=== PATIENT | male | born 1960 | race Caucasian/White ===

== ENCOUNTER 2020-07-11 11:29 | Outpatient (CLI) | payer BC, SELFPAY ==
[2020-07-11 12:08] LABS: Anion Gap 7 mmol/L (8-16); Blood Urea Nitrogen 26 mg/dL (9-20); Carbon Dioxide 29 mmol/L (22-30); Chloride 102 mmol/L (98-107); Estimated Glomerular Filt Rate 48; Glucose 129 mg/dL (75-110); Potassium 3.8 mmol/L (3.4-5.0); Sodium 138 mmol/L (137-145)
== END 2020-07-11 11:30 | disposition home or self-care (01) ==
PROVIDERS: Anesthesiology; PCP Internal Medicine; Visit Provider Surgery
DX: R35.8 Other polyuria (principal)
CPT/HCPCS: 36415; 80048

== ENCOUNTER 2020-07-17 00:33 | Outpatient (CLI) | payer BC, SELFPAY ==
[2020-07-17 16:39] LABS: SARS-CoV-2 RNA PCR Negative
== END 2020-07-17 00:34 | disposition home or self-care (01) ==
LOC: ANHCOVIDDT 00:33
PROVIDERS: PCP Internal Medicine; Visit Provider Surgery
DX: Z01.812 Encounter for preprocedural laboratory examination (principal); Z20.828 Contact with and (suspected) exposure to other viral communicable diseases
CPT/HCPCS: 87635; C9803; U0003

== ENCOUNTER 2020-07-19 01:43 | Day surgery (SDC) | payer BC, SELFPAY ==
[2020-07-05 17:04] VITALS: BMI 32.5
--- NOTE | 2020-07-17 16:56 | PM.SD ---
Same Day Admit/Disch: HPI History of Present Illness Chief complaint: umbilical hernia Narrative: Ady Da Silva Jr. is a 59 year old male Who noticed a periumbilical bulge about 15 months ago. It had increased in size for the last 6 months and occasionally is difficult to reduce. He was seen in the office and found to have a reducible periumbilical hernia. Patient also is known to have a paralyzed right vocal cord. This is the been the case since he was a child. He is taken to surgery now for periumbilical ventral hernia repair with mesh. [facility] Past Medical History Medical History (Updated 07/18/20 @ 18:03 by Amandeep Neal CRNA) Arthritis Depression GERD (gastroesophageal reflux disease) HTN (hypertension) Paralysis of vocal cords Ventral hernia without obstruction or gangrene Surgical History Surgical History (Updated 07/18/20 @ 18:04 by Amandeep Neal CRNA) History of shoulder surgery Hx of arthroscopic knee surgery Hx of hand surgery Hx of tonsillectomy Family History Family History Father Hypertension CAD (coronary artery disease) Pacemaker Mother Diabetes mellitus Dementia Sibling Hypertension Social History Social History Smoking status: Never smoker Tobacco type: cigarettes Alcohol intake: current Drinks per week: 3 Substance use: never Living arrangements: with family Spiritual care concerns: No Same Day Admit/Disch: Med Pre-admit Medications Home Medications Medication Instructions Recorded Confirmed Type bupropion HCl 300 mg 24 hr tablet, 300 mg PO QAM 05/18/20 07/19/20 History extended release olmesartan 40 mg tablet 40 mg PO DAILY 05/18/20 07/19/20 History sildenafil 100 mg tablet 100 mg PO PRN PRN 05/18/20 07/19/20 History B Complex-Vitamin B12 1 tab-cap PO DAILY 07/05/20 07/19/20 History Cinnamon 2,000 mg PO DAILY 07/05/20 07/19/20 History ascorbic acid (vitamin C) [Vitamin 1,600 mg PO DAILY 07/05/20 07/19/20 History C] chlorthalidone 25 mg PO DAILY 07/05/20 07/19/20 History cholecalciferol (vitamin D3) 2,000 unit PO DAILY 07/05/20 07/19/20 History [Vitamin D3] coenzyme Q10 [CoQ-10] 200 mg PO DAILY 07/05/20 07/19/20 History garlic 1,000 mg PO DAILY 07/05/20 07/19/20 History magnesium 400 mg PO DAILY 07/05/20 07/19/20 History testosterone undecanoate 237 mg PO QAM AND QPM 07/05/20 07/19/20 History zinc 100 mg PO DAILY 07/05/20 07/19/20 History hydrocodone-acetaminophen 1 - 2 tablet PO Q6H PRN #12 tablet 07/19/20 Rx ketorolac 10 mg PO Q6H 4 Days #16 tablet 07/19/20 Rx Exam Const: General: comfortable, no acute distress, alert and awake HENMT: Head: normocephalic and atraumatic Mouth: Yes Normal oral and palatal mucosa present Eyes: Conjunctivae: conjunctivae normal Pupils: Equal, round and reactive pupils present EOM: EOMs intact bilaterally Neck: Neck: normal visual inspection, no lymphadenopathy and nontender Resp: Effort & Inspection: normal respiratory effort Auscultation: clear to auscultation bilaterally Cardio: Rate: regular rate Rhythm: regular rhythm Heart sounds: no gallops, no murmurs and no rubs GI: Inspection: non-distended and visible herniation ( periumbilical) GI Palp: Yes Soft to palpation, No Tenderness to palpation present (GI), No Guarding due to palpation present (GI), No Hepatomegaly present, No Splenomegaly present, Yes Hernia present ( partially reducible periumbilical ventral hernia) and No Rebound tenderness present Auscultation: normal bowel sounds Skin: Lesions: no lesions Rashes: no rashes Neuro: General: no focal motor deficits and CN's II-XI intact bilaterally Cranial nerves: Yes Equal, round and reactive pupils present, Yes Bilaterally intact EOM present, Yes facial symmetry and Yes Midline tongue present Speech: normal speech Motor exam (neuro): 5/5 motor strength present throughout and Motor abn
--- NOTE | 2020-07-18 18:02 | WPDANESEPP ---
Anes - Eval Pre Procedure Procedure: Operation Date: 07/19/20 08:30 Proposed Procedures p Repair Umbilical Hernia with Mesh - Sd Hickye MD Date/Time: 07/18/20 18:02 Pre Op Diagnosis: umbilical hernia Patient Data Age: 59 Gender: M Height: 5 ft 6.5 in Weight: 92.72 kg Allergies Allergy/AdvReac Type Severity Reaction Status Date / Time No Known Allergies Allergy Verified 07/05/20 16:10 Home Medications Medication Instructions Recorded Confirmed Type bupropion HCl 300 mg 24 hr tablet, 300 mg PO QAM 05/18/20 07/05/20 History extended release olmesartan 40 mg tablet 40 mg PO DAILY 05/18/20 07/05/20 History sildenafil 100 mg tablet 100 mg PO PRN PRN 05/18/20 05/26/20 History B Complex-Vitamin B12 1 PO DAILY 07/05/20 History Cinnamon 2,000 mg PO DAILY 07/05/20 07/05/20 History ascorbic acid (vitamin C) [Vitamin 1,600 mg PO DAILY 07/05/20 07/05/20 History C] chlorthalidone 25 mg PO DAILY 07/05/20 07/05/20 History cholecalciferol (vitamin D3) 2,000 unit PO DAILY 07/05/20 07/05/20 History [Vitamin D3] coenzyme Q10 [CoQ-10] 200 mg PO DAILY 07/05/20 07/05/20 History garlic 1,000 mg PO DAILY 07/05/20 07/05/20 History magnesium 400 mg PO 07/05/20 History testosterone undecanoate 237 mg PO QAM AND QPM 07/05/20 07/05/20 History zinc 100 mg PO DAILY 07/05/20 07/05/20 History Patient hx anesthesia problems: none Family hx anesthesia problems: none PMFSH Past Medical History Medical History (Updated 07/18/20 @ 18:03 by Amandeep Neal CRNA) Arthritis Depression GERD (gastroesophageal reflux disease) HTN (hypertension) Paralysis of vocal cords Ventral hernia without obstruction or gangrene Surgical History Surgical History (Updated 07/18/20 @ 18:04 by Amandeep Neal CRNA) History of shoulder surgery Hx of arthroscopic knee surgery Hx of hand surgery Hx of tonsillectomy Family History Family History Father Hypertension CAD (coronary artery disease) Pacemaker Mother Diabetes mellitus Dementia Sibling Hypertension Social History Social History Smoking status: Never smoker Tobacco type: cigarettes Alcohol intake: current Drinks per week: 3 Substance use: never Spiritual care concerns: No Exam Day of Procedure 07/18/20 18:02
[2020-07-19 06:36] VITALS: BP 138/97; PULSE 89; RESP 20; TEMP 36.4; O2SAT 99
--- NOTE | 2020-07-19 06:49 | WPDHPUPDATE1 ---
History and Physical Update Update Date/Time: 07/19/20 06:49 History and Physical has been reviewed, including an updated exam of the patient. There are NO changes in the patient's condition. Risks, benefits, and alternatives have been discussed and questions answered. Patient agrees to proceed with procedure.
[2020-07-19] MEDS: ACETAMINOPHEN 500 MG TABLET 1000 MG PO (07:23)
[2020-07-19] MEDS: LACTATED RINGERS 1,000 ML 30 ML IV CONT (07:29)
[2020-07-19] MEDS: KETOROLAC 15 MG/ML VIAL (*BKC) IV PUSH (07:35)
--- NOTE | 2020-07-19 07:54 | WPDANESEFPP ---
Anes - Eval Final PreProcedure Day of Procedure 07/19/20 07:54 Patient weight: obese Heart: regular rate and rhythm Lungs: clear to auscultation and normal air movement Airway: Mallampati scale class II Neurological: alert and oriented Last oral intake: >/= 8 hours ASA classification: III Emergent: no Anesthetic plan: proceed Anesthesia type and monitoring: general GIVS and standard monitoring Informed Consent: The patient's anesthetic plan and its attendant risks and benefits were discussed with the patient/family/POA. Questions were solicited and answers provided to the satisfaction of the patient/family/POA.
[2020-07-19] MEDS: ceFAZolin 2 GM/D5W 50 ML 2 GM/50 ML BAG IVPB (08:55)
[2020-07-19 09:56] VITALS: BP 114/73; PULSE 80; RESP 14; O2SAT 95
--- NOTE | 2020-07-19 10:04 | PM.PROC ---
Procedure Note - Detailed Date of procedure: 07/19/20 Pre-op diagnosis: umbilical hernia Umbilical hernia Post-op diagnosis: same Procedure performed: Umbilical hernia repair with 4.6 cm Parietex underlay mesh Description of procedure: Patient was taken to the operating room and IV sedation was administered. Prep and drape was carried out. The proposed incision along the upper margin of the umbilicus was marked on the skin. Local anesthetic was infiltrated into the skin and the deeper subcutaneous tissues. Incision was made and dissection was carried down through the skin and to the hernia sac. The sac was then dissected free from the umbilical skin and the surrounding subcutaneous tissues. It was dissected down to its neck. Additional local anesthetic was infiltrated into the neck and the fascia surrounding the neck of the hernia sac. The sac was then amputated at its neck. The subcutaneous was undermined around the hernia defect. Additional local was infiltrated around the fascia. I placed a finger inside the hernia defect and checked for any abdominal wall adhesions in the area. None were found. No other hernias were noted. A 4.6 cm Parietex [place] was chosen. It was folded and placed in the defect. Once it symmetrically covered the defect, I placed cranial and caudal transfascial sutures of 0 Ethibond. These sutures were placed in such a fashion that, when tied, they would advance the edges of the hernia defect towards 1 another. These sutures were tied and had the desired effect. I then closed the hernia defect with [id number] mattress sutures of 0 Ethibond. The repair looked quite satisfactory. I then infiltrated additional local all around the areas of the repair. The umbilical skin was tacked to the fascia with 3 0 Vicryl suture. The subcutaneous was closed with 3 0 Vicryl. Subcuticular interrupted 4 O Vicryl skin stitches were placed. The skin was then closed with running 4 0 Monocryl subcuticular suture. Wound was dressed with Exofin surgical adhesive. The patient was awakened and taken to recovery in good condition. Counts were correct x2. Implants: 4.6 cm Parietex hernia mesh Anesthesia: MAC and local (0.5% Marcaine with Exparel) Surgeon: Sd Hickey MD Manager Country: [place]oxane MILLER Estimated blood loss (mL): 5 Drains: No Packing: No Pathology: none sent Complications: None Condition: stable Disposition: same day Findings: 12 millimeter hernia defect
[2020-07-19 10:20] VITALS: BP 110/65; PULSE 76; O2SAT 97
== END 2020-07-19 10:44 | disposition home or self-care (01) ==
PROVIDERS: PCP Internal Medicine; Visit Provider Surgery
PROC: (CPT 49652; principal; 2020-07-19 08:30)
DX: K43.9 Ventral hernia without obstruction or gangrene (principal); J38.00 Paralysis of vocal cords and larynx, unspecified; I10 Essential (primary) hypertension; K21.9 Gastro-esophageal reflux disease without esophagitis; F32.9 Major depressive disorder, single episode, unspecified
CPT/HCPCS: 49652; A9270; C1781; C9290; J0690; J1885; J2250; J2704; J3010; J7120

== ENCOUNTER 2020-10-08 09:53 | Emergency (ER) | payer BC, SELFPAY ==
[2020-10-08 10:02] VITALS: BP 148/110; PULSE 103; RESP 20; TEMP 36.4; O2SAT 100
[2020-10-08] MEDS: HYDROcodone/acetaminophen (*CRX) 5-325 MG TABLET 1 TAB PO (10:48)
[2020-10-08] MEDS: KETOROLAC (*BKC) 60 MG/2 ML VIAL IM (10:48)
--- NOTE | 2020-10-08 12:40 | ED.GENADULT ---
HPI - General Adult General Chief complaint: Unspecified Stated complaint: hemorrhoid Time Seen by Provider: 10/08/20 10:08 Source: patient Mode of arrival: ambulatory Limitations: no limitations History of Present Illness HPI narrative: Patient is a 60-year-old male who presents to emergency department for evaluation of rectal discomfort history of hemorrhoids with worsening condition over the last week patient notes gross irritation of the anodermal denies rectal bleeding has been in touch with primary care for this who has been using Proctofoam as sitz bath's currently patient denies any fever chills nausea vomiting presents noting moderate discomfort of the rectum Related Data Home Medications Medication Instructions Recorded Confirmed bupropion HCl 300 mg 24 hr tablet, 300 mg PO QAM 05/18/20 08/21/20 extended release olmesartan 40 mg tablet 40 mg PO DAILY 05/18/20 08/21/20 sildenafil 100 mg tablet 100 mg PO PRN PRN 05/18/20 08/21/20 B Complex-Vitamin B12 1 tab-cap PO DAILY 07/05/20 08/21/20 Cinnamon 2,000 mg PO DAILY 07/05/20 08/21/20 ascorbic acid (vitamin C) [Vitamin 1,600 mg PO DAILY 07/05/20 08/21/20 C] chlorthalidone 25 mg PO DAILY 07/05/20 08/21/20 cholecalciferol (vitamin D3) 2,000 unit PO DAILY 07/05/20 08/21/20 [Vitamin D3] coenzyme Q10 [CoQ-10] 200 mg PO DAILY 07/05/20 08/21/20 garlic 1,000 mg PO DAILY 07/05/20 08/21/20 magnesium 400 mg PO DAILY 07/05/20 08/21/20 testosterone undecanoate 237 mg PO QAM AND QPM 07/05/20 08/21/20 zinc 100 mg PO DAILY 07/05/20 08/21/20 alprazolam 10/08/20 hydrocortisone-pramoxine applic 10/08/20 Allergies Allergy/AdvReac Type Severity Reaction Status Date / Time No Known Allergies Allergy Verified 10/08/20 10:04 Review of Systems Review of Systems: All systems reviewed & are unremarkable except as noted in HPI and below PMFSH Past Medical History Medical History Arthritis Depression GERD (gastroesophageal reflux disease) HTN (hypertension) Paralysis of vocal cords Ventral hernia without obstruction or gangrene Surgical History Surgical History History of shoulder surgery History of umbilical hernia repair 07/19/2020 with mesh Hx of arthroscopic knee surgery Hx of hand surgery Hx of tonsillectomy Family History Family History Father Hypertension CAD (coronary artery disease) Pacemaker Mother Diabetes mellitus Dementia Sibling Hypertension Social History Social History Smoking status: Never smoker Tobacco type: cigarettes Alcohol intake: current Drinks per week: 3 Substance use: never Spiritual care concerns: No Exam Narrative: Exam Narrative: GENERAL: Well-appearing, well-nourished, and in no acute distress. HEAD: Normocephalic, atraumatic. EYES: PERRLA and EOMI. ENT: Nares clear, no rhinorrhea or epistaxis. Mucous membranes moist. Oropharynx without tonsillar hypertrophy exudate or other lesions. Bilateral TMs pearly real nonbulging NECK: Supple. No adenopathy or masses. No carotid bruits or JVD CHEST: Clear to auscultation. No respiratory distress. No wheezes rales or rhonchi HEART: Regular rate and rhythm. No murmur heard. Normal peripheral pulses. ABDOMEN: Soft, nontender, nondistended RECTAL: Patient with edematous anal Derm involves all of the anal Derm some purplish areas some violaceous areas and pink tissue noted there is no bleeding there are no cellulitic changes EXTREMITIES: Normal range of motion. No edema. SKIN: Warm, dry, no rash. NEURO: No focal deficits. Alert and oriented x3. PSYCH: Normal mood and affect. Course Course Emergency Course: Discussed case with patient's primary care who is working on getting him to a rectal specialist already we will continue the therapies add
== END 2020-10-08 12:56 | disposition home or self-care (01) ==
PROVIDERS: Emergency Provider Emergency Medicine; PCP Internal Medicine
DX: K62.89 Other specified diseases of anus and rectum (principal); M19.90 Unspecified osteoarthritis, unspecified site; F32.9 Major depressive disorder, single episode, unspecified; K21.9 Gastro-esophageal reflux disease without esophagitis; I10 Essential (primary) hypertension
CPT/HCPCS: 96372; 99283; A9270; J1885

== ENCOUNTER 2021-08-21 10:47 | Emergency (ER) | payer BC, SELFPAY ==
--- NOTE | ~2021-08-21 | XR_ITS ---
EXAMINATION: XR chest 2V DATE: 08/21/2021 11:03 INDICATION: Shortness of breath. COVID positive. TECHNIQUE: PA and lateral views of the chest were obtained. COMPARISON: Chest radiograph dated 09/18/2004 FINDINGS: The lungs remain clear with no focal airspace opacities, pulmonary edema, pleural effusion or pneumot horax. The cardiomediastinal silhouette is normal. Mild thoracic spondylosis. IMPRESSION: 1. No acute cardiopulmonary disease. Reviewed, dictated and finalized at location A.
--- NOTE | 2021-08-21 10:52 | ED.URI ---
HPI - URI/Sore Throat General Chief Complaint: Upper Respiratory Infection Stated Complaint: SOB Time Seen by Provider: 08/21/21 10:52 Source: patient and RN notes reviewed History of Present Illness HPI Narrative: Patient is 60-year-old male who presents the urgent care with complaints of shortness of breath that started yesterday with activity. Patient states that today is his first day out of post Covid quarantine and was supposed to go back to work. Patient states that yesterday he attempted to get up, move around and back in the house and noticed he had increased shortness of breath. Patient states he did not have any symptoms of Covid however his tested positive and therefore he got tested. Patient states he started taking Mucinex as of yesterday. Denies of any fevers or upper respiratory complaints. Denies of any cough or wheezing. Denies of any chest pain. Patient is extremely anxious and noted that his was in the hospital with Covid pneumonia. Patient states that his main concern is that he is unable to go back to work due to his shortness of breath . No other complaints. No acute distress noted with the exception of anxiety. Patient aware of the plan of care. Some parts of this dictation were generated by voice recognition software and may contain typographical and/or grammatical inaccuracies. Related Data Home Medications Medication Instructions Recorded Confirmed bupropion HCl 300 mg 24 hr tablet, 300 mg PO QAM 05/18/20 08/21/20 extended release olmesartan 40 mg tablet 40 mg PO DAILY 05/18/20 08/21/20 sildenafil 100 mg tablet 100 mg PO PRN PRN 05/18/20 08/21/20 B Complex-Vitamin B12 1 tab-cap PO DAILY 07/05/20 08/21/20 Cinnamon 2,000 mg PO DAILY 07/05/20 08/21/20 ascorbic acid (vitamin C) [Vitamin 1,600 mg PO DAILY 07/05/20 08/21/20 C] chlorthalidone 25 mg PO DAILY 07/05/20 08/21/20 cholecalciferol (vitamin D3) 2,000 unit PO DAILY 07/05/20 08/21/20 [Vitamin D3] coenzyme Q10 [CoQ-10] 200 mg PO DAILY 07/05/20 08/21/20 garlic 1,000 mg PO DAILY 07/05/20 08/21/20 magnesium 400 mg PO DAILY 07/05/20 08/21/20 testosterone undecanoate 237 mg PO QAM AND QPM 07/05/20 08/21/20 zinc 100 mg PO DAILY 07/05/20 08/21/20 alprazolam 10/08/20 hydrocortisone-pramoxine applic 10/08/20 Allergies Allergy/AdvReac Type Severity Reaction Status Date / Time No Known Allergies Allergy Verified 10/08/20 10:04 Review of Systems Review of Systems: CONSTITUTIONAL: Denies fever, chills, or sweats. EYES: Denies visual changes, redness, or discharge. ENT: Denies rhinorrhea, congestion, sore throat, or otalgia. CARDIOVASCULAR: Denies chest pain, palpitations, or edema. RESPIRATORY: Reports of dyspnea without cough or wheezing GASTROINTESTINAL: Denies abdominal pain, nausea, vomiting, or diarrhea. GENITOURINARY: Denies dysuria or hematuria. SKIN: Denies rash or itching. MUSCULOSKELETAL: Denies back pain, joint pain, or myalgia. NEUROLOGIC: Denies headache, numbness, or weakness. All other systems reviewed are negative, except as documented in HPI. [facility] Past Medical History Medical History Arthritis Depression GERD (gastroesophageal reflux disease) HTN (hypertension) Paralysis of vocal cords Ventral hernia without obstruction or gangrene Surgical History Surgical History History of shoulder surgery History of umbilical hernia repair 07/19/2020 with mesh Hx of arthroscopic knee surgery Hx of hand surgery Hx of tonsillectomy Family History Family History Father Hypertension CAD (coronary artery disease) Pacemaker Mother Diabetes mellitus Dementia Sibling Hypertension Social History Social History Smoking status: Never smoker Tobacco type: cigarettes Alcohol intake: cu
[2021-08-21 10:54] VITALS: BP 188/119; PULSE 109; RESP 16; TEMP 37.1; O2SAT 98
[2021-08-21 11:36] VITALS: BP 130/84
== END 2021-08-21 11:38 | disposition home or self-care (01) ==
PROVIDERS: Emergency Provider Nurse Practitioner Family; PCP Internal Medicine
DX: R06.02 Shortness of breath (principal); U09.9 Post COVID-19 condition, unspecified; M19.90 Unspecified osteoarthritis, unspecified site; K21.9 Gastro-esophageal reflux disease without esophagitis; I10 Essential (primary) hypertension; F32.A Depression, unspecified
CPT/HCPCS: 71046; 99213; G0463

== ENCOUNTER 2021-09-09 10:28 | Emergency (ER) | payer BC, SELFPAY ==
[2021-09-09 10:30] VITALS: BP 169/87; PULSE 87; RESP 16; TEMP 36.9; O2SAT 98
[2021-09-09 10:35] VITALS: BP 169/87; PULSE 87; RESP 16; TEMP 36.9; O2SAT 98
--- NOTE | 2021-09-09 10:43 | ED.EYEPROB ---
HPI - Eye Problem General Chief complaint: Eye Problems Stated complaint: eye irritation Time Seen by Provider: 09/09/21 10:43 Source: patient and RN notes reviewed Mode of arrival: ambulatory Limitations: no limitations History of Present Illness HPI Narrative: 61-year-old male presents with concern for left eye redness, irritation, drainage, discomfort. Reports the eye was matted shut in the morning for the last 2 mornings. He denies vision changes. Denies injury to the eye, foreign body. Does not wear contact lenses. Denies any sinus congestion or drainage. MD chief complaint: eye redness Related Data Home Medications Medication Instructions Recorded Confirmed bupropion HCl 300 mg 24 hr tablet, 300 mg PO QAM 05/18/20 09/09/21 extended release olmesartan 40 mg tablet 40 mg PO DAILY 05/18/20 09/09/21 sildenafil 100 mg tablet 100 mg PO PRN PRN 05/18/20 09/09/21 B Complex-Vitamin B12 1 tab-cap PO DAILY 07/05/20 09/09/21 Cinnamon 2,000 mg PO DAILY 07/05/20 09/09/21 ascorbic acid (vitamin C) [Vitamin 1,600 mg PO DAILY 07/05/20 09/09/21 C] chlorthalidone 25 mg PO DAILY 07/05/20 09/09/21 cholecalciferol (vitamin D3) 2,000 unit PO DAILY 07/05/20 09/09/21 [Vitamin D3] coenzyme Q10 [CoQ-10] 200 mg PO DAILY 07/05/20 09/09/21 magnesium 400 mg PO DAILY 07/05/20 09/09/21 zinc 100 mg PO DAILY 07/05/20 09/09/21 alprazolam 0.5 mg PO DAILY PRN 10/08/20 09/09/21 Allergies Allergy/AdvReac Type Severity Reaction Status Date / Time No Known Allergies Allergy Verified 09/09/21 10:31 Review of Systems Review of Systems: CONSTITUTIONAL: Denies malaise, chills, sweats, or fever. EYES: Denies visual changes. Reports left eye irritation, redness, discharge, matting. ENT: Denies rhinorrhea, congestion, sinus pain, otalgia or sore throat. SKIN: Denies rash or itching. NEUROLOGIC: Denies headache. All systems reviewed & are unremarkable except as noted in HPI and below PMFSH Past Medical History Medical History Arthritis Depression GERD (gastroesophageal reflux disease) HTN (hypertension) Paralysis of vocal cords Ventral hernia without obstruction or gangrene Surgical History Surgical History History of shoulder surgery History of umbilical hernia repair 07/19/2020 with mesh Hx of arthroscopic knee surgery Hx of hand surgery Hx of tonsillectomy Family History Family History Father Hypertension CAD (coronary artery disease) Pacemaker Mother Diabetes mellitus Dementia Sibling Hypertension Social History Social History Smoking status: Never smoker Tobacco type: cigarettes Alcohol intake: current Drinks per week: 3 Substance use: never Spiritual care concerns: No Comments At time of signature, agree with nursing past medical, surgical, social and family history. There is no relevant family history pertinent to the presenting complaint Exam Narrative: GENERAL: Well-appearing, well-nourished, and in no acute distress. HEAD: Normocephalic, atraumatic. EYES: PERRLA, right conjunctivae and sclera clear, and EOMI. No nystagmus. Left sclera and conjunctivae injected with copious drainage, no hordeolum or chalazion noted, no obvious injury to the eye noted ENT: Mucous membranes moist. NECK: Supple. CHEST: No respiratory distress. Speaks in full sentences. HEART: Regular rate and rhythm. SKIN: Warm, dry, no visible rash. NEURO: Alert and oriented x3. PSYCH: Normal mood and affect Course Course Emergency Course: Patient is aware of diagnosis, understands and agrees to treatment plan. Anticipatory guidance given. Patient agrees to follow-up as directed and is aware of reasons to seek care at the emergency department. Portions of this record may have been created with
== END 2021-09-09 10:58 | disposition home or self-care (01) ==
PROVIDERS: Emergency Provider Nurse Practitioner; PCP Internal Medicine
DX: H10.32 Unspecified acute conjunctivitis, left eye (principal); M19.90 Unspecified osteoarthritis, unspecified site; K21.9 Gastro-esophageal reflux disease without esophagitis; I10 Essential (primary) hypertension; F32.A Depression, unspecified
CPT/HCPCS: 99213; G0463

== ENCOUNTER 2022-10-10 16:42 | Emergency (ER) | payer BC, SELFPAY ==
[2022-10-10 16:48] VITALS: BP 160/82; PULSE 89; RESP 16; TEMP 36.6; O2SAT 97
--- NOTE | 2022-10-10 16:59 | ED.SKABFB ---
HPI - Skin/Abscess/Foreign Bdy General Chief complaint: Skin/Abscess/Foreign Body Stated complaint: pain from shingles Time Seen by Provider: 10/10/22 16:59 Source: patient Mode of arrival: ambulatory Limitations: no limitations History of Present Illness HPI narrative: 62-year-old male presents with shingles rash to right upper abdomen for 5 weeks. States on day 4 of rash he called his primary care physician regarding shingles was told to take yqhm-ayr-zyxlloe medications. He states that his pain is ?severe ?. His primary care physician is approximately 45 minutes away and he did not want to drive out there to see him due to his pain. He states that rash is well-healed and he does not understand why he is still uncomfortable. States that he cannot sleep at night. All systems reviewed and negative except as noted above. Related Data Home Medications Medication Instructions Recorded Confirmed bupropion HCl 300 mg 24 hr tablet, 300 mg PO QAM 05/18/20 10/10/22 extended release (Wellbutrin XL) olmesartan 40 mg tablet (Benicar) 40 mg PO DAILY 05/18/20 10/10/22 sildenafil 100 mg tablet (Viagra) 100 mg PO PRN PRN Erectile 05/18/20 10/10/22 Dysfunction B Complex-Vitamin B12 1 tab-cap PO DAILY 07/05/20 10/10/22 Cinnamon 2,000 mg PO DAILY 07/05/20 10/10/22 ascorbic acid (vitamin C) 1,000 mg 1,600 mg PO DAILY 07/05/20 10/10/22 tablet (Vitamin C) chlorthalidone 25 mg tablet 25 mg PO DAILY 07/05/20 10/10/22 cholecalciferol (vitamin D3) 50 2,000 unit PO DAILY 07/05/20 10/10/22 mcg (2,000 unit) capsule (Vitamin D3) coenzyme Q10 100 mg capsule 200 mg PO DAILY 07/05/20 10/10/22 (CoQ-10) magnesium 200 mg tablet 400 mg PO DAILY 07/05/20 10/10/22 zinc 50 mg tablet 100 mg PO DAILY 07/05/20 10/10/22 alprazolam 0.5 mg tablet 0.5 mg PO DAILY PRN Anxiety 10/08/20 10/10/22 Allergies Allergy/AdvReac Type Severity Reaction Status Date / Time No Known Allergies Allergy Verified 10/10/22 16:52 Review of Systems Review of Systems: CONSTITUTIONAL: Denies fever, chills, or sweats. EYES: Denies visual changes, redness, or discharge. ENT: Denies rhinorrhea, congestion, sore throat, or otalgia. CARDIOVASCULAR: Denies chest pain, palpitations, or edema. RESPIRATORY: Denies cough or dyspnea. GASTROINTESTINAL: Denies abdominal pain, nausea, vomiting, or diarrhea. GENITOURINARY: Denies dysuria or hematuria. SKIN: Reports painful shingles rash. MUSCULOSKELETAL: Denies back pain, joint pain, or myalgia. NEUROLOGIC: Denies headache, numbness, or weakness. PSYCHIATRIC: Denies anxiety or depression. All other systems reviewed are negative, except as documented in HPI. [facility] Past Medical History Medical History Arthritis Depression GERD (gastroesophageal reflux disease) HTN (hypertension) Paralysis of vocal cords Ventral hernia without obstruction or gangrene Surgical History Surgical History History of shoulder surgery History of umbilical hernia repair 07/19/2020 with mesh Hx of arthroscopic knee surgery Hx of hand surgery Hx of tonsillectomy Family History Family History Father Hypertension CAD (coronary artery disease) Pacemaker Heart disease Cerebrovascular accident Mother Diabetes mellitus Dementia Sibling Hypertension Diabetes mellitus Social History Social History Smoking status: Never smoker Tobacco type: cigarettes Alcohol intake: current Drinks per week: 3 Substance use: never Additional occupation/education comments: [employer] Spiritual care concerns: No Comments At time of signature, agree with nursing past medical, surgical, social and family history. There is no relevant family history pertinent to the presenting complaint. Exam Narrative:
== END 2022-10-10 17:15 | disposition home or self-care (01) ==
PROVIDERS: Emergency Provider Nurse Practitioner Family; PCP Internal Medicine
DX: B02.29 Other postherpetic nervous system involvement (principal); M19.90 Unspecified osteoarthritis, unspecified site; K21.9 Gastro-esophageal reflux disease without esophagitis; I10 Essential (primary) hypertension; F32.A Depression, unspecified
CPT/HCPCS: 99213; G0463

== ENCOUNTER 2023-09-09 16:27 | Outpatient (CLI) | payer BC, SELFPAY ==
--- NOTE | ~2023-09-09 | XR_ITS ---
Left Shoulder Technique: AP and scapular Y views were obtained. Clinical History: Pain Findings: No fracture or dislocation is seen. Osseous alignment is anatomic. There is mild degenerati ve change at the AC joint. Glenohumeral joint is intact. Soft tissues are unremarkable. Impression: Mild AC joint degenerative change. Reviewed, dictated and finalized at [facility]. D TECHNICAL SPECIALIST Impression: Mild AC joint degenerative change.
--- NOTE | ~2023-09-09 | XR_ITS ---
Right Shoulder Technique: AP and scapular Y views were obtained. Clinical History: Pain Findings: No fracture or dislocation is seen. Osseous alignment is anatomic. There is cpey-pv-glwqaww e AC joint degenerative change. Glenohumeral joint is intact. Soft tissues are unremarkable. Impression: Uejz-ek-fvyogasm AC joint degenerative change. Reviewed, dictated and finalized at location . LE FEEDER Impression: Bgzi-qc-zpskpkdh AC joint degenerative change.
== END 2023-09-09 16:28 | disposition home or self-care (01) ==
PROVIDERS: PCP Internal Medicine; Visit Provider Physical Medicine & Rehabilitation
DX: M19.011 Primary osteoarthritis, right shoulder (principal); M19.012 Primary osteoarthritis, left shoulder
CPT/HCPCS: 73030

== ENCOUNTER 2023-09-17 16:35 | Outpatient (CLI) | payer BC, SELFPAY ==
--- NOTE | ~2023-09-17 | MR_ITS ---
MRI of the cervical spine Clinical History: Radiculopathy Technique: Axial T2-weighted and gradient images, and sagittal T1-weighted, T2-weighted, and STIR brittany ges were acquired. Findings: No acute fracture or subluxation of the cervical spine seen. No suspicious bone marrow sign al abnormality seen. At C2-C3, there is mild left foraminal disc osteophyte complex with mild left facet hypertrophy and l eft neural foraminal narrowing. No definite right neural foraminal narrowing. No central canal stenos is or cord compression. At C3-C4, there is mild disc osteophyte convex and mild facet hypertrophy. There is bilateral neural foraminal narrowing, right worse than left. No john central canal stenosis or cord compression. At C4-C5, there is disc osteophyte complex resulting in mild canal stenosis and mild ventral cord fla ttening. There is bilateral neural foraminal narrowing with bilateral facet arthropathy, left worse t ernandez right. At C5-C6, there is disc osteophyte, spinal canal stenosis but no definite john cord compression. The re is bilateral facet arthropathy and bilateral neural foraminal narrowing. At C6-C7, there is no disc bulge or herniation. No spinal canal stenosis, cord compression, or defini te neural foraminal narrowing. No abnormal signal seen in the spinal cord. Paravertebral soft tissues are unremarkable. Impression: Moderate degenerative spondylosis, as detailed above. Reviewed, dictated and finalized at [facility]. EY DEPARTMENT SUPERVISOR Impression: Moderate degenerative spondylosis, as detailed above.
== END 2023-09-17 16:36 | disposition home or self-care (01) ==
PROVIDERS: PCP Internal Medicine; Visit Provider Physical Medicine & Rehabilitation
DX: M47.22 Other spondylosis with radiculopathy, cervical region (principal)
CPT/HCPCS: 72141

== ENCOUNTER 2024-06-15 16:42 | Outpatient (CLI) | payer BC, SELFPAY ==
--- NOTE | ~2024-06-15 | XR_ITS ---
XR sacroiliac joints min 3V Ordering provider: Jennifer Rodriguez MD History: . sacroiliitis, FOR SACRUM INJECTIONS . Comparison: None. FINDINGS: BONES: No acute fracture or dislocation. JOINTS: The bilateral sacroiliac joint spaces appear well maintained. No bony fusion of the sacroilia c joints or bony erosions. Facet joint disease in the lower lumbar area. SOFT TISSUES: Unremarkable. IMPRESSION: NO ACUTE OSSEOUS ABNORMALITY. NORMAL SACROILIAC JOINTS. Reviewed, dictated and finalized at location A.
== END 2024-06-15 16:43 | disposition home or self-care (01) ==
LOC: ANHIMG 16:45
PROVIDERS: PCP Internal Medicine; Visit Provider Physical Medicine & Rehabilitation Pain Medicine
DX: M46.1 Sacroiliitis, not elsewhere classified (principal)
CPT/HCPCS: 72202

== ENCOUNTER 2024-12-16 20:47 | Emergency (ER) | payer BC, SELFPAY ==
--- NOTE | ~2024-12-16 | XR_ITS ---
CHEST RADIOGRAPH, PA AND LATERAL CLINICAL HISTORY: chest pain . COMPARISON: 08/21/2021 TECHNIQUE: PA and lateral views of the chest. FINDINGS The cardiomediastinal silhouette is unremarkable. The lungs are clear. Visualized osseous structures and soft tissues are unremarkable. IMPRESSION: No focal infiltrate or effusion. Reviewed, dictated and finalized at location A. WARE PRODUCT SPECIALIST
--- NOTE | ~2024-12-16 | CT_ITS ---
EXAMINATION: CTA brain carotid DATE: 12/17/2024 02:15 INDICATION: Transient ischemic attack. Right-sided numbness. TECHNIQUE: Computed tomographic angiography (CTA) of the head was performed with 100 mL Omnipaque-350 intravenous contrast. CTA of the neck was performed with intravenous contrast. Automated exposure co ntrol and iterative reconstruction technique were employed. The dose-length product was 1165.40 mGy-c m. Maximum intensity projection and volume rendered 3D-reconstructions were created by the technologi st on a separate workstation. COMPARISON: Head CT 12/17/2024 FINDINGS: HEAD CTA: There is an old infarct in the anterior limb left internal capsule. There is no intracrania l hemorrhage, acute infarction, or abnormal intracranial mass lesion. The ventricles are normal in si ze. The orbits are normal. There is mild mucosal thickening in the paranasal sinuses. The mastoid air cells are normal. The vertebral arteries are codominant. There is no significant stenosis of basilar artery or the posterior cerebral arteries. There is no significant stenosis of the intracranial inte rnal carotid arteries or anterior or middle cerebral arteries. Anterior communicating artery is edgar l. The posterior communicating arteries are normal. There is no aneurysm. NECK CTA: The lungs demonstrate mild atelectasis. There are no pathologically enlarged lymph nodes. T here is no significant stenosis of the vertebral arteries. There is plaque in the proximal internal c arotid arteries. There is 0% stenosis of the proximal right internal carotid artery relative to edgar l distal artery lumen diameter (NASCET criteria). There is 0% stenosis of the proximal left internal carotid artery relative to normal distal artery lumen diameter. There is mild cervical spondylosis. IMPRESSION: 1. 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 2. No aneurysm or significant intracranial arterial stenosis. 3. 0% stenosis of the proximal internal carotid arteries relative to normal distal artery lumen diame ters (NASCET criteria). Reviewed, dictated and finalized at location A. ING SAW OPERATOR IMPRESSION: 1. 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 2. No aneurysm or significant intracranial arterial stenosis. 3. 0% stenosis of the proximal internal carotid arteries relative to normal dis dottie artery lumen diameters (NASCET criteria).
--- NOTE | ~2024-12-16 | CT_ITS ---
EXAMINATION: CT brain wo con DATE: 12/17/2024 01:32 INDICATION: Right-sided numbness. TECHNIQUE: Computed tomography (CT) of the head was performed without intravenous contrast. The mA wa s adjusted according to patient size. Iterative reconstruction technique was employed. The dose-lengt h product was 681.00 mGy-cm. COMPARISON: None FINDINGS: There is an old infarct involving the anterior limb left internal capsule. There is no intr acranial hemorrhage, acute infarction, or abnormal intracranial mass lesion. The ventricles are edgar l in size. The paranasal sinuses are clear. The orbits are normal. The mastoid air cells are normal. IMPRESSION: 1. 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 Reviewed, dictated and finalized at location A. INING ASSOCIATE
--- OUTSIDE RECORDS SUMMARY | 2024-12-16 20:49 | XMS_ITS | Clinical Summary ---
Author Organization [facility] Address [address] [place] [address] Care Team Providers Care Stock Checkerer Name Role Phone Juliano Wylie MD Unavailable [phone] Source Comments [facility],non-owned Affiliates and Associated Physician Practices is amultiple site organization consisting of ambulatory clinics and hospital sitesin [place], [place], [place] and [place]. This disclosure is being madepursuant to the Care Everywhere program and may not contain all information available regarding this patient. Last updated 18.[facility] fl3ur Allergies No known active allergies Medications * Be aware that medications may not be up to date on this document. Alwaysverify current medications with the patient. Medication Sig Dispensed Refills Start Date End Date Status nebivolol (BYSTOLIC) 10 MG tablet Take by mouth once daily. Active olmesartan-hydrochlorot hiazide (BENICAR HCT) 40-12.5 MG tablet Take by mouth once daily. Active buPROPion XL 24hr (WELLBUTRIN XL) 300 MG tablet Take by mouth once daily. Active montelukast (SINGULAIR) 10 MG tablet Take by mouth as needed. Active sildenafil (VIAGRA) 100 MG tablet Take by mouth as needed. Active Family History Medical History Relation Name Comments High Blood Pressure Brother High Blood Pressure Father Diabetes Mother Migraine Mother Relation Name Status Comments Brother Father Mother Social History Tobacco Use Types Packs/Day Years Used Date Smoking Tobacco: Never Smokeless Tobacco: Never Alcohol Use Standard Drinks/Week Comments Yes 0 (1 standard drink = 0.6 oz pur e alcohol) 3-4/month Sex and Gender Information Value Date Recorded Sex Assigned at Not on file Gender Identity Not on file Sexual Orientation Not on file Last Filed Vital Signs Vital Sign Reading Time Taken Comments Blood Pressure 132/82 12/29/2013 10:25 AM GLOVE CUFFER Pulse 74 12/29/2013 10:25 AM GLOVE CUFFER Temperature - - Respiratory Rate - - Oxygen Saturation - - Inhaled Oxygen Concentration - - Weight 104.1 kg (229 lb 9.6 oz) 014 10:25 AM GLOVE CUFFER Height 177 cm (5' 9.69 ) 12/29/2013 10: 25 AM GLOVE CUFFER Body Mass Index 33.24 12/29/2013 10:25 AM GLOVE CUFFER Plan of Treatment Health Maintenance Due Date Last Done Comments COLOGUARD (AGES 45-75) - COL ON CA SCREENING 1958 COLON MONITORING 1958 COLONOSCOPY - COLON CA SCREENING 1958 CT COLONOGRAPHY - COLON CA SCREENING 1958 Colorectal Cancer Screening 1958 FIT - COLON CA SCREENING 1958 FLEX SIG - COLON CA SCREENING 1958 LIPID TESTING 1960 HEPATITIS C SCREENING 08/26/1976 DTAP/TDAP/TD VACCINES (1 - Tdap) 1977 PNEUMOCOCCAL VACCINE 50+ (1 of 1 - PCV) 2008 ZOSTER VACCINE (1 of 2) 2008 COVID-19 VACCINE (1 - 2023-2 5 season) 2024 INFLUENZA VACCINE (#1) 2024 DEPRESSION SCREENING 11/03/2024 Respiratory Syncytial Virus (RSV) Vaccine Pt: or over 60 yrs (1 - 1-dose 75+ series) 2033 HEPATITIS B VACCINE Aged Out No longe r eligible based on patient's age to complete this topic HIB VACCINE Aged Out No longer eligi ble based on patient's age to complete this topic HPV VACCINE Aged Out No longer eligi ble based on patient's age to complete this topic MENINGOCOCCAL (Group B) VACCINE Aged Out No longer eligible based on patient's age to complete this topic MENINGOCOCCAL VACCINE Aged Out No mickey gem eligible based on patient's age to complete this topic Care Teams Stock Checkerer Relationship Specialty Start Date End Date Juliano Wylie MD Neurology 12/29/13
--- OUTSIDE RECORDS SUMMARY | 2024-12-16 20:49 | XMS_ITS | Continuity of Care Document ---
Author Organization [facility] Address [address] [place] [address] Phone Care Team Providers Care Advertising Designer Name Role Phone Beltran WINTER, OTR/L, CHT, Anuel Unavailable Julianna vailable Procedures Procedure Date Orthotic Mgmt and Training Wrist Immobilization w/ clam shell Elastic Stocknett Short Opponens Hand based Elastic Stocknett Advance Directives Directive Yes / No Effective Date File Name No Information Encounters Encounter Description Practice Location Reason(s) For Visit Diagnoses Date Provider Providers Copied on Encounter [facility], [address], [place], [id number], tel:[phone] [place] No Information Beltran Agee. [address] [facility], [address], [place], [address], [place]. tel:[phone] Referring Provider: Nima Lugo, [address] [facility], [place], [address]. tel:[phone] [facility], [id number], tel:[phone] [place] Pain in left handOther specified soft tissue disordersStiffne ss of left hand, not elsewhere classifiedOther lack of coordinationSpra in of metacarpophalang eal joint of left thumb, subs 7 Beltran Agee. [address] [facility], [address], [place], [address], [place]. [phone] Referring Provider: Nima Price, [address], [place], [address]. tel:[phone] Family History Family Member Type Diagnosis Age At Onset No Information Payers Payer name Insurance type Covered republican ID Hilary mcdonald(s) Estefania [id number] Medrisk EPO [facility] 00 Social History Type Description Quantity Date Captured Comments Sex Male Smoking Status No Information Chief Complaint And Reason For Visit No Information Reason For Referral Reason For Referral No Information History Of Present Illness Encounter Date Complaint History Of Prese nt Illness No Information Functional Status Date Functional Assessmen t No Information Instructions Date Instruction Additional Infor mation No Information Assessments Type Assessment Date No Information Patient Care Teams Name Effective Dates (start - stop) Status Members No Information
--- OUTSIDE RECORDS SUMMARY | 2024-12-16 20:49 | XMS_ITS | Clinical Summary ---
Author Organization [facility] Facility Address [address] [place] [address] Care Team Providers Care Commercial Painter Name Role Phone Omer Larson MD Primary Care Provider [phone] Medications chlorthalidone 25 MG tablet Take 1 tablet (25 mg total) by mouth 3 times weekly: Fri and Friday morning 45 tablet 1 11/12/2023 Active Encounters Date Type Department Care Team Description 12/02/2024 Documentation Only [facility], [address] [address] Rocky Domínguez DO from Last 3 Months Social History Tobacco Use Types Packs/Day Years Used Date Smoking Tobacco: Never Alcohol Use Standard Drinks/Week Comments Yes 0 (1 standard drink = 0.6 oz pur e alcohol) Sex and Gender Information Value Date Recorded Sex Assigned at Not on file Legal Sex Male 2:50 PM EDT Gender Identity Not on file Sexual Orientation Not on file Last Filed Vital Signs Vital Sign Reading Time Taken Comments Blood Pressure 138/80 05/11/2024 1:23 PM CDT Pulse 72 05/11/2024 1:23 PM CDT Temperature 36.1 C (97 F) 05/11/2024 1:23 PM CDT Respiratory Rate 18 05/11/2024 1:23 PM CDT Oxygen Saturation 99% 05/11/2024 1:23 PM CDT Inhaled Oxygen Concentration - - Weight 94.8 kg (209 lb) 05/11/2024 1:23 PM CDT Height 170.2 cm (5' 7 ) 07/30/2022 3:29 PM CDT Body Mass Index 32.73 07/30/2022 3:29 PM CDT Plan of Treatment Upcoming Encounters Date Type Department Care Team (Late st Contact Info) Description 02/15/2025 3:00 PM CDT Office Visit [facility], [facility] [address] [place] [address] Rocky Domínguez DO [address] [place] [address] Health Maintenance Due Date Last Done Comments Pneumococcal Vaccine: 65+ Years (1 of 2 - PCV) 1964 Colorectal Cancer Screening: Annual FOBT 2007 Colorectal Cancer Screening: Sigmoidoscopy 2007 Diabetes: Ophthalmology Exam 06/05/2021 Diabetes: Pedal Pulse Checked 06/05/2021 Diabetes: Sensory Foot Exam 06/05/2021 Diabetes: Visual Foot Exam 06/05/2021 Diabetes: Hemoglobin A1C 05/24/2024 024, 08/19/2023, 02/12/2023, Additional history exists Influenza Vaccine (#1) 2024 09/21/2014 Colorectal Cancer Screening: Colonoscopy 12/26/2026 12/26/2016 Hepatitis B Vaccine Aged Out No longe r eligible based on patient's age to complete this topic Insurance [facility] Care Teams Commercial Painter Relationship Specialty Start Date End Date Omer Larson MD [address] [place] [address] PCP - General Internal Medicine 08/05/23
--- OUTSIDE RECORDS SUMMARY | 2024-12-16 20:49 | XMS_ITS | Referral Summary ---
Author Organization [facility] Address [address] [place] [address] Care Team Providers Care Water Treatment Plant Engineer Name Role Phone Juliano Wylie MD Unavailable [phone] Source Comments [facility],non-owned Affiliates and Associated Physician Practices is amultiple site organization consisting of ambulatory clinics and hospital sitesin [place], [place], [place] and [place]. This disclosure is being madepursuant to the Care Everywhere program and may not contain all information available regarding this patient. Last updated 18.[facility] Qwite Allergies No known active allergies Medications * [...] tablet Take by mouth as needed. Active Social History Tobacco Use Types Packs/Day Years [...] Comments Blood Pressure 132/82 12/29/2013 10:25 AM HAIR DESIGNER Pulse 74 12/29/2013 10:25 AM HAIR DESIGNER Temperature - - Respiratory Rate - - Oxygen Saturation - - Inhaled Oxygen Concentration - - Weight 104.1 kg (229 lb 9.6 oz) 014 10:25 AM HAIR DESIGNER Height 177 cm (5' 9.69 ) 12/29/2013 10: 25 AM HAIR DESIGNER Body Mass Index 33.24 12/29/2013 10:25 AM HAIR DESIGNER Plan of Treatment Not on file Care Teams Water Treatment Plant Engineer Relationship Specialty Start Date End Date Juliano Wylie MD Neurology 12/29/13
--- OUTSIDE RECORDS SUMMARY | 2024-12-16 20:49 | XMS_ITS | Continuity of Care Document ---
Author Organization [facility] Address [address] [place] [address] [address] [place] [address] Phone Care Team Providers Care Transportation Broker Name Role Phone Kaycee Olivarez Unavailable Unavailable Advance Directives Directive Yes / No Effective Date File Name No Information Encounters Encounter Description Practice Location Reason(s) For Visit Diagnoses Date Provider Providers Copied on Encounter [facility], [address], [place], [place], [id number], [place] tel:[phone] [facility] No Information [address] Juan[address] Benoit. [address] , [address], [place], [address], [place]. tel:[phone] Family History Family Member Type Diagnosis Age At Onset No Information Payers Payer name Insurance type Covered alliance party ID Authoriza tion(s) No Information Social History Type Description Quantity Date Captured [...]
--- OUTSIDE RECORDS SUMMARY | 2024-12-16 20:49 | XMS_ITS | Clinical Summary ---
Author Organization [facility] al Address [address] [place] [address] Care Team Providers Care Biomass Plant Manager Name Role Phone Omer Larson MD Primary Care Provider [phone] Allergies No known active allergies Medications vitamin B complex capsuleIndicati ons:Vitamin Deficiency Prevention Take 1 capsule by mouth every morning Active ascorbic acid (VITAMIN C) 500 mg tablet,chewable Indications:Vit balderas C Deficiency Take 1.5 tablet/chew tab (750 mg total) by mouth every morning Active cholecalciferol (VITAMIN D-3) 2000 unit capsuleIndicati ons:supplement Take 1 capsule (2,000 Units total) by mouth every morning Active naproxen (ALEVE) 220 mg tablet Take 1 tablet (220 mg total) by mouth every 12 (twelve) hours as needed for pain Active zinc gluconate 100 mg tabletIndicatio ns:supplement Take 1 tablet by mouth every morning Active magnesium oxide (MAG-OX) 400 mg (241.3 mg elemental magnesium) tabletIndicatio ns:hypomagnesem ia Take 1 tablet (400 mg total) by mouth every morning Active turmeric root extract 500 mg capsuleIndicati ons:supplement Take 1,000 mg by mouth every morning Active cinnamon bark 500 mg capsuleIndicati ons:supplement Take 1 capsule (500 mg total) by mouth every morning Active montelukast (SINGULAIR) 10 mg tablet Take 1 tablet (10 mg total) by mouth nightly 90 tablet 11/26/19 22 Active blood-glucose meter misc Use daily or as directed for monitoring of diabetes. One touch dx ell.9 1 each 08/26/20 22 Active blood glucose diagnostic (OneTouch Verio test strips) strip USE TO TEST 3 TIMES A WEEK 25 strip 5 08/14/20 23 Active lancets (OneTouch Delica Plus Lancet) 30 gauge misc USE TO TEST 3 TIMES A WEEK 100 each 1 04/08/20 24 Active mupirocin (BACTROBAN) 2 % ointmentIndicat ions:Methicilli n-Resistant S. Aureus Nasal Colonization Apply to each nostril 2 (two) times a day Apply pea size amount into each nostril twice a day for 5 days prior to surgery. 22 g 04/20/20 24 Active olmesartan (BENICAR) 40 mg tablet Take 1 tablet (40 mg total) by mouth daily 90 tablet 1 04/23/20 24 Active chlorthalidone (HYGROTON) 25 mg tablet Take 1 tablet (25 mg total) by mouth daily 90 tablet 1 07/12/20 24 Active buPROPion XL (WELLBUTRIN XL) 300 mg 24 hr tablet TAKE 1 TABLET BY MOUTH EVERY MORNING 90 tablet 2 10/01/20 24 Active ALPRAZolam (XANAX) 0.5 mg tablet TAKE 1 TABLET(0.5 MG TOTAL) BY MOUTH DAILY 90 tablet 11/18/19 25 Active sildenafiL (VIAGRA) 100 mg tablet TAKE 1 TABLET BY MOUTH NEEDED FOR ERECTILE DYSFUNCTION 24 tablet 3 11/19/19 25 Active ALPRAZolam (XANAX) 0.5 mg tablet Take 1 tablet (0.5 mg total) by mouth daily 90 tablet 11/06/19 24 025 Discontinued sildenafiL (VIAGRA) 100 mg tablet Take 1 tablet (100 mg total) by mouth as needed for erectile dysfunction 24 tablet 3 12/24/19 24 025 Discontinued Active Problems Problem Noted Date Diagnosed Date Neurogenic claudication 04/20/2024 Acute pain of left knee 02/12/2022 Assessment & Plan (02/12/2022 12:56 PM CDT): Dr. Hines for Ortho Recommended L knee brace with strenuous activity (mowing grass, etc.) Exam is reassuring today Hyperlipidemia 02/12/2022 Assessment & Plan (02/12/2022 12:57 PM CDT): Reviewed today, TRG's elevated (non-fasting) Reviewed diet Anxiety 08/22/2020 Overview (08/22/2020): Continue medications Seasonal allergic rhinitis 08/22/2020 Overview (08/22/2020): Renew montelukast Essential hypertension 08/22/2020 Overview (08/22/2020): At target Impaired fasting glucose 08/22/2020 Overview (08/22/2020): A1c 6.1 continue present Rx Assessment & Plan (02/12/2022 12:56 PM CDT): A1C stable at 6.2% today Diet and activity reviewed Resolved Problems Problem Noted Date Diagnosed Date Resolved Date Hemorrhoids 10/11/2020 02/12/2022 Overview (10/11/2020): Added automatically from request for surgery [id number] Encounters Date Type Department Care Team Description 12/01/2024 Orders Only [facility] [address] [place] [address] [address] [place] [address] Omer Larson MD from Last 3 Months Immunizations Name Administration Dates Next Due Influenza, Trivalent, High D ose, Split, Preservative Free, Intramuscular 09/21/2014 Surgical History Surgery Date Site/Laterality Comments SHOULDER SURGERY Bilateral R- 2000, L- 2004 KNEE ARTHROSCOPY Left 2003, 2004, 2009 UMBILICAL HERNIA REPAIR 11/03/2019 - 11/02/2020 HAND LIGAMENT RECONSTRUCTION 11/03/2010 - 11/02/2011 Right HAND LIGAMENT RECONSTRUCTION 11/03/2020 - 11/02/2021 Left TONSILLECTOMY 11/03/1962 - 11/02/1963 KNEE ARTHROSCOPY W/ LATERAL RELEASE 2010 Medical History Medical History Date Comments Anxiety Depression Hypertension Paralyzed vocal cords Hemorrhoids Rectal pain Hypertension Arthritis Anxiety Cervical stenosis (uterine cervix) Type 2 diabetes mellitus (HCC) Gastric reflux Chronic kidney disease Lumbar stenosis Rheumatoid arthritis (HCC) Family History Medical History Relation Name Comments Anesthesia problems Brother 1 Ermias Da Silva PONV Colon polyps Brother 1 Ermias Da Silva Diabetes Brother 1 Ermias Da Silva Arthritis Brother 2 Ermias Hearing loss Father Ady Heart disease Father Ady Hyperlipidemia Father Ady Hypertension Father Ady Colon polyps Mother Jes Diabetes Mother Jes Ulcerative colitis Mother Jes Cancer Mother's Sister Alesha Relation Name Status Comments Brother 1 Ermias Da Silva Brother 2 Ermias Father Ady Mother Jes Mother's Sister Alesha Social History Tobacco Use Types Packs/Day Years Used Date Smoking Tobacco: Never Cigarettes Smokeless Tobacco: Never Tobacco Cessation:Counseling Given: Not Answered Alcohol Use Standard Drinks/Week Comments Yes 0 (1 standard drink = 0.6 oz pur e alcohol) AUDIT-C Answer Date Recorded Q1: How often do you have a drink containing alc ohol? 2-4 times a month 04/15/2024 Q2: How many drinks containi ng alcohol do you have on a typical day when you are drinking? 1 or 2 04/15/2024 Q3: How often do you have si x or more drinks on one occasion? Never 04/15/2024 Sex and Gender Information Value Date Recorded Sex Assigned at Not on file Legal Sex Male 8:34 AM CUTTER GAS Gender Identity Not on file Sexual Orientation Not on file Obstetrics History Last Filed Vital Signs Vital Sign Reading Time Taken Comments Blood Pressure 158/91 06/24/2024 1:43 PM CDT Pulse 85 06/24/2024 1:43 PM CDT Temperature 36.3 C (97.4 F) 11/15/2020 10:52 AM CUTTER GAS Respiratory Rate 12 10/13/2020 4:20 PM CUTTER GAS Oxygen Saturation 98% 08/12/2022 1:11 PM CDT Inhaled Oxygen Concentration - - Weight 94.8 kg (209 lb) 07/22/2024 3:16 PM CDT Height 167.6 cm (5' 6 ) 07/22/2024 3:16 PM CDT Body Mass Index 33.73 07/22/2024 3:16 PM CDT Plan of Treatment Health Maintenance Due Date Last Done Comments Depression Screening 1960 Hepatitis C Screening 1960 Dilated Eye Exam 1958 Foot Exam 1958 Pneumococcal vaccine 65+ (1 of 2 - PCV) 1964 DTaP/Tdap/Td Vaccine (1 - Tdap) 1969 Hepatitis B Screening 1976 Zoster Vaccine (1 of 2) 2008 Fall Risk Assessment 10/11/2021 10/11/2020 eGFR 06/01/2022 06/01/2021, 05/01/2021 Albumin Creatinine Ratio, Urine 06/02/2022 Well Visit 65+ 2023 08/12/2022 Influenza Vaccine (#1) 2024 09/21/2014 Prostate Cancer Screening-PSA 08/12/2024 08/12/2022, 05/01/2021 Lipid Panel 08/19/2024 08/19/2023, 08/03, 02/12/2022, Additional history exists Hemoglobin A1C 12/25/2024 06/24/2024, 02/02, 11/19/2023, Additional history exists Colon Cancer Screening-Colonoscopy 12/26/2026 12/26/2016 Colon Cancer Screening-CT Colonography Discontinued 12/26/2016 Colon Cancer Screening-DNA Stool Discontinued 12/26/19 Colon Cancer Screening-FIT Discontinued 12/26/2016 Colon Cancer Screening-Sigmoidoscopy Discontinued 12/26/2016 Procedures Procedure Name Priority Date/Time Associated Diagnosis Comments CARDIOLOGY DOCUMENT SCAN 12/01/2024 4:42 PM CUTTER GAS POCT HEMOGLOBIN A1C Routine 06/24/2024 1 :46 PM CDT Type 2 diabetes mellitus without complication, without long-term current use of insulin (CMS/HCC) (HCC) POCT LIPID PANEL Routine 08/19/2023 1:20 PM CDT Hyperlipidemia, unspecified hyperlipidemia type PSA SCREEN Routine 08/12/2022 1:49 PM CDT Impaired fasting glucose Essential hypertension Hyperlipidemia, unspecified hyperlipidemia type Routine general medical examination at a health care facility ALBUMIN CREATININE RATIO, URINE Routine 06/02/2021 10:22 AM CDT RENAL FUNCTION PANEL Routine 06/01/2021 3:29 PM CDT COLONOSCOPY Routine 12/26/2016 from Last 3 Months or Most Recently Relevant to Health Maintenance Results * Cardiology Document Scan (12/01/2024 4:42 PM CUTTER GAS) Anatomical Region Laterality Modality Other us Omer Larson MD CV CARDIAC SERVICES PROCEDURE S Final Result * (ABNORMAL) POCT hemoglobin A1c (06/24/2024 1:46 PM CDT) Hemoglobin A1C, POC 6.9 4.0 - 5.6 % Blood 06/24/2024 1:46 PM CDT us Omer Larson MD POINT OF CARE TEST ORDERABLES Final Result * POCT lipid panel (08/19/2023 1:20 PM CDT) Cholesterol, POC 185 mg/dL HDL, POC 35 mg/dL Triglycerides, POC 280 mg/dL LDL Cholesterol POC 94 mg/dL Chol/HDL Ratio, POC 5.2 Non-HDL Cholesterol, POC 150 mg/dL Cholesterol Total, POC 185 mg/dL Capillary blood 08/19/2023 1 :20 PM CDT us Omer Larson MD POINT OF CARE TEST ORDERABLES Final Result * PSA screen (08/12/2022 1:49 PM CDT) PSA 0.9 0.0 - 4.0 ng/mL [facility] - 01 Comment: Lori ECLIA methodology. According to the [place] [employer] Association, Serum PSA should decrease and remain at undetectable levels after radical prostatectomy. The AUA defines biochemical recurrence as an initial PSA value 0.2 ng/mL or greater followed by a subsequent confirmatory PSA value 0.2 ng/mL or greater. Values obtained with different assay methods or kits cannot be used interchangeably. Results cannot be interpreted as absolute evidence of the presence or absence of malignant disease. Blood 08/12/2022 1:49 PM CDT 08/12/2022 Narrative [facility] - 08/13/2022 8:15 AM CDT Performed at: - [address] [id number] Violin Teacher: Harish Flannery PhD, Phone: [phone] us Omer Larson MD LAB BLOOD ORDERABLES Final Re [facility]ult [facility] - 01 * Albumin Creatinine Ratio, Urine (06/02/2021 10:22 AM CDT) Creatinine, ur 65 20 - 320 mg/dL [facility] Microalbumin, ur 0.5 See Note: mg/dL [facility] Comment: Reference Range: Reference Range Not established Microalbumin/creat ratio 8 <30 mcg/mg creat [facility] Comment: The ADA defines abnormalities in albumin excretion as follows: Category Result (mcg/mg creatinine) Normal <30 Microalbuminuria 30-299 Clinical albuminuria > OR = 300 The ADA recommends that at least two of three specimens collected within a 3-6 month period be abnormal before considering a patient to be within a diagnostic category. 06/02/2021 10:2 2 AM CDT 06/02/2021 10:22 AM CDT Narrative [facility] - 06/03/2021 1:20 PM CDT SPLIT 06/01/2021 FROM [id number] Rocky Domínguez DO LAB URINE ORDERABLES Final Result Performing Organization Address City/[facility]/ZIP Co de Phone Number [facility] [address] [place] [address] * (ABNORMAL) Renal function panel (06/01/2021 3:29 PM CDT) Glucose 128 65 - 139 mg/dL [facility] Comment: Non-fasting reference interval BUN 34(H) 7 - 25 mg/dL [facility] Creatinine 1.68(H) 0.70 - 1.25 mg/dL [facility] Comment: For patients >49 years of age, the reference limit for Creatinine is approximately 13% higher for people identified as -Malian. eGFR NON-AFR. OMANI 43(L) > OR = 60 mL/min/1. 73m2 [facility] EGFR 50(L) > OR = 60 mL/min/1. 73m2 [facility] BUN/creat ratio 20 6 - 22 (calc) [facility] Sodium 139 135 - 146 mmol/L [facility] Potassium, pl 4.1 3.5 - 5.3 mmol/L [facility] Chloride 102 98 - 110 mmol/L [facility] CO2 28 20 - 32 mmol/L [facility] Calcium 10.0 8.6 - 10.3 mg/dL [facility] Phosphorus, sr 3.8 2.5 - 4.5 mg/dL [facility] Albumin 4.5 3.6 - 5.1 g/dL [facility] 06/01/2021 3:29 PM CDT 06/01/2021 3:32 PM CDT Narrative [facility] - 06/02/2021 6:14 AM CDT PT VARIFIED ALL INFO FASTING:NO PATIENT UNABLE TO VOID; ADVISED TO RETURN FOR COL FASTING: NO Rocky Domínguez DO LAB BLOOD ORDERABLES Final Result CORTEZ [facility] [address] [place] [address] * Colonoscopy (12/26/2016) Anatomical Region Laterality Modality Other Narrative 12/26/2016 Pt reports he had in 2017 it was normal repeat in 10 years Historical Provider ENDOSCOPY PROCEDURES Katherine l Result from Last 3 Months or Most Recently Relevant to Health Maintenance [place] [employer] Care Teams Biomass Plant Manager Relationship Specialty Start Date End Date Omer Larson MD [address] [facility] [address] [address] PCP - General 12/25/16
--- OUTSIDE RECORDS SUMMARY | 2024-12-16 20:49 | XMS_ITS | Continuity of Care Document ---
Author Organization [facility] Address [address] [place] [address] Phone Care Team Providers Care Client Service Supervisor Name Role Phone Iesha WEBB, Cam Unavailable Unavailable Advance Directives Directive Yes / No Effective Date File Name No Information Encounters Encounter Description Practice Location Reason(s) For Visit Diagnoses Date Provider Providers Copied on Encounter [facility], [address], [id number], [place] tel:[phone] [facility] No Information 3 Iesha Levy. [address] [facility] [facility] [address], [place], [place], [id number] , [place]. tel: [phone] Family History Family Member Type Diagnosis Age At Onset No Information Payers Payer name Insurance type Covered libertarian ID Authoriza tion(s) No Information Social History [...]
--- OUTSIDE RECORDS SUMMARY | 2024-12-16 20:49 | XMS_ITS | Referral Summary ---
Author Organization [facility] al Address [address] [place] [address] Care Team Providers Care Gleason Gear Generator Name Role Phone Omer Larson MD Primary Care Provider [phone] Encounters Date Type Department Care Team Description 12/01/2024 Orders Only [facility] [address] [place] [address] [address] [place] [address] Omer Larson MD from Last 3 Months Allergies No known active allergies Medications vitamin [...] each 08/26/20 22 Active blood glucose diagnostic (IPP of AmericaTouch Verio test strips) strip USE TO TEST 3 TIMES A WEEK 25 strip 5 08/14/20 23 Active lancets (IPP of AmericaTouch Delica Plus Lancet) 30 gauge misc USE [...] (10/11/2020): Added automatically from request for surgery [id number] Immunizations Name Administration Dates Next Due Influenza, Trivalent, High D ose, Split, Preservative Free, Intramuscular 09/21/2014 Social History Tobacco Use Types Packs/Day Years [...] on file Legal Sex Male 8:34 AM PLANT SECURITY GUARD Gender Identity Not on file Sexual Orientation Not on file Last Filed Vital Signs Vital Sign Reading Time Taken Comments Blood Pressure 158/91 06/24/2024 1:43 PM CDT Pulse 85 06/24/2024 1:43 PM CDT Temperature 36.3 C (97.4 F) 11/15/2020 10:52 AM PLANT SECURITY GUARD Respiratory Rate 12 10/13/2020 4:20 PM PLANT SECURITY GUARD Oxygen Saturation 98% 08/12/2022 1:11 PM CDT Inhaled Oxygen Concentration - - Weight 94.8 kg (209 lb) 07/22/2024 3:16 PM CDT Height 167.6 cm (5' 6 ) 07/22/2024 3:16 PM CDT Body Mass Index 33.73 07/22/2024 3:16 PM CDT Plan of Treatment Not on file Procedures Procedure Name Priority Date/Time Associated Diagnosis Comments CARDIOLOGY DOCUMENT SCAN 12/01/2024 4:42 PM PLANT SECURITY GUARD POCT HEMOGLOBIN A1C Routine 06/24/2024 1 :46 PM CDT Type 2 diabetes mellitus without complication, without long-term current use of insulin (CMS/[facility]) (HCC) POCT LIPID PANEL Routine 08/19/2023 1:20 PM CDT Hyperlipidemia, unspecified hyperlipidemia type PSA SCREEN Routine 08/12/2022 1:49 PM CDT Impaired fasting glucose Essential hypertension Hyperlipidemia, unspecified hyperlipidemia type Routine general [facility] ALBUMIN CREATININE RATIO, URINE Routine 06/02/2021 10:22 AM CDT RENAL FUNCTION PANEL Routine 06/01/2021 3:29 PM CDT COLONOSCOPY Routine 12/26/2016 from Last 3 Months or Most Recently Relevant to Health Maintenance Results * Cardiology Document Scan (12/01/2024 4:42 PM PLANT SECURITY GUARD) Anatomical Region Laterality Modality Other us Omer [...] * PSA screen (08/12/2022 1:49 PM CDT) Pathologist [facility] PSA 0.9 0.0 - 4.0 ng/mL [facility] - 01 Comment: Lori ECLIA methodology. According to the [place] U[employer] Association, Serum PSA should decrease and [...] 08/13/2022 8:15 AM CDT Performed at: - [facility] [id number] Field Recruiter: Harish Flannery PhD, Phone: [phone] us Omer Larson MD LAB BLOOD ORDERABLES Final Re sult [facility] - 01 * Albumin Creatinine Ratio, [...] 06/03/2021 1:20 PM CDT SPLIT 06/01/2021 FROM [id number] us Rocky Domínguez DO LAB URINE ORDERABLES Final Result Performing Organization Address [facility] Co de Phone Number [facility] [place] [address] [place] [address] * (ABNORMAL) Renal function panel (06/01/2021 3:29 PM CDT) Glucose 128 65 - 139 mg/dL [facility] Comment: Non-fasting reference interval BUN 34(H) 7 - 25 mg/dL [facility] Creatinine 1.68(H) 0.70 - 1.25 mg/dL [facility] Comment: For patients >49 years of age, the reference limit for Creatinine is approximately 13% higher for people identified as -Togolese. eGFR NON-AFR. CITIZEN OF [place] 43(L) > OR = 60 mL/min/1. 73m2 [...] LAB BLOOD ORDERABLES Final Result CORTEZ [facility] [address] [place] [address] * Colonoscopy (12/26/2016) Anatomical Region Laterality Modality Other Narrative 12/26/2016 Pt reports he had in 2017 it was normal repeat in 10 years Historical Provider ENDOSCOPY PROCEDURES Katherine l Result from Last 3 Months or Most Recently Relevant to Health Maintenance Insurance [employer] [facility] [employer] ACCESS CHOICE [place] [employer] ACCESS CHOICE [place] [employer] ACCESS CHOICE [place] Care Teams Gleason Gear Generator Relationship Specialty Start Date End Date Omer Larson MD [address] [facility] [address] [address] PCP - General 12/25/16
--- OUTSIDE RECORDS SUMMARY | 2024-12-16 20:49 | XMS_ITS | Encounter Summary ---
Author Organization [facility] Healthcare Address [address] [place] [address] Care Team Providers Care Wire Weaving Loom Setter Name Role Phone Omer Larson MD Primary Care Provider [phone] Reason for Referral * Diagnostic Imaging (Routine) - Closed Specialty Diagnoses / Procedures Referred By Contac t Referred To Contact Diagnoses Cervical radiculopathy Procedures XR Spine Cervical 2 or 3 Views Cam Funez MD Phone: tel: fax: [address] [address] Referral ID Status Reason Start Date Expiration Date Visits Re quested Visits Authorized [id number] Closed 07/31/2018 02/09/2020 1 1 Encounter Details Date Type Department Care Team (Late st Contact Info) Description 07/31/2018 Community Orders [facility] EpicCare Link Cam Funez MD [address] [facility] [address] [place] [address] Cervical radiculopathy (Primary Dx) Social History Tobacco Use Types Packs/Day Years Used Date Smoking Tobacco: Never Assessed Sex and Gender Information Value Date Recorded Sex Assigned at Not on file Legal Sex Male 8:34 AM QUENCHER OPERATOR Gender Identity Not on file Sexual Orientation Not on file documented as of this encounter Plan of Treatment Not on file documented as of this encounter Results * XR Spine Cervical 2 or 3 Views (07/31/2018 12:48 PM CDT) Anatomical Region Laterality Modality Spine N/A Computed Radiogr aphy 07/31/2018 1:06 PM CDT Impressions 07/31/2018 1:06 PM CDT 1. Mild left C6-C7 facet joint osteoarthritis. Electronically signed by: Kayleigh Riggs M.D. Narrative 07/31/2018 1:06 PM CDT EXAMINATION: Cervical spine 2 or 3 views HISTORY: Cervical radiculopathy FINDINGS: AP, lateral, and swimmer's views of the cervical spine are performed without comparison. There is normal alignment of the cervical spine. The vertebral body heights are normal. The intervertebral disc spaces are normal. No prevertebral soft tissue swelling or bony central canal stenosis. There is mild left C6-C7 facet joint osteoarthritis. Procedure Note Kayleigh Riggs MD - 07/31/2018 EXAMINATION: Cervical spine 2 or 3 views HISTORY: Cervical radiculopathy FINDINGS: AP, lateral, and swimmer's views of the cervical spine are performed without comparison. There is normal alignment of the cervical spine. The vertebral body heights are normal. The intervertebral disc spaces are normal. No prevertebral soft tissue swelling or bony central canal stenosis. There is mild left C6-C7 facet joint osteoarthritis. IMPRESSION: 1. Mild left C6-C7 facet joint osteoarthritis. Electronically signed by: Kayleigh Riggs M.D. Cam Funez MD IMG XR PROCEDURES Final Result documented in this encounter Visit Diagnoses Diagnosis Cervical radiculopathy- Primary Brachial neuritis or radiculitis nos Cervical radiculopathy Brachial neuritis or radiculitis nos documented in this encounter Care Teams Wire Weaving Loom Setter Relationship Specialty Start Date End Date Omer Larson MD [address] [address] PCP - General 12/25/16 documented as of this encounter
--- OUTSIDE RECORDS SUMMARY | 2024-12-16 20:49 | XMS_ITS | Patient Health Summary ---
Author Organization [facility] Address [address] [facility] [place] [address] Care Team Providers Care Federal Judicial Law Clerk Name Role Phone Juliano Wylie MD Unavailable [phone] Note from [facility],non-owned Affiliates and Associated Physician Practices is amultiple site organization consisting of ambulatory clinics and hospital sitesin [place], [place], [place] and [place]. This disclosure is being madepursuant to the Care Everywhere program and may not contain all information available regarding this patient. Last updated 18.[facility] [employer] Allergies No known active allergies Medications * Be aware that medications may not be up to date on this document. Alwaysverify current medications with the patient. * nebivolol (BYSTOLIC) 10 MG tablet Take by mouth once daily. * olmesartan-hydrochlorothiazide (BENICAR HCT) 40-12.5 MG tablet Take by mouth once daily. * buPROPion XL 24hr (WELLBUTRIN XL) 300 MG tablet Take by mouth once daily. * montelukast (SINGULAIR) 10 MG tablet Take by mouth as needed. * sildenafil (VIAGRA) 100 MG tablet Take by mouth as needed. Social History Tobacco Use Types Packs/Day Years [...] Comments Blood Pressure 132/82 12/29/2013 10:25 AM CALENDER MACHINE OPERATOR Pulse 74 12/29/2013 10:25 AM CALENDER MACHINE OPERATOR Temperature - - Respiratory Rate - - Oxygen Saturation - - Inhaled Oxygen Concentration - - Weight 104.1 kg (229 lb 9.6 oz) 014 10:25 AM CALENDER MACHINE OPERATOR Height 177 cm (5' 9.69 ) 12/29/2013 10: 25 AM CALENDER MACHINE OPERATOR Body Mass Index 33.24 12/29/2013 10:25 AM CALENDER MACHINE OPERATOR Care Teams Federal Judicial Law Clerk Relationship Specialty Start Date End Date Juliano Wylie MD Neurology 12/29/13
[2024-12-16 21:09] VITALS: BP 146/94; PULSE 98; RESP 20; TEMP 36.8; O2SAT 100
--- NOTE | 2024-12-16 21:21 | ECG_ITS ---
Test Date: 2024-12-16 21:31:55 Measurements Intervals [place] Rate: 92 P: 31 [place]: 138 QRS: 20 QRSD: 90 T: 52 QT: 355 QTc: 440 Interpretive Statements SINUS RHYTHM WITH OCCASIONAL SUPRAVENTRICULAR PREMATURE COMPLEXES BORDERLINE ST ABNORMALITY- LAT/HIGH LAT LEADS BORDERLINE ECG No previous ECG available for comparison Electronically Signed On 12-17-2024 06:53:43 SALES NEGOTIATOR by Castillo Mccauley D.O.
[2024-12-16 21:34] LABS: Basophils Percent Auto 0.3 % (0.2-1.2); Eosinophils Absolute Auto 0.1 K/mm3 (0-0.3); Eosinophils Percent Auto 0.9 % (0-4.4); Hematocrit 46.2 % (42.0-52.0); Hemoglobin 16.1 g/dL (14.0-18.0); Immature Granulocyte Absolute 0.02 K/mm3 (0.00-0.031); Immature Granulocyte Percent A 0.3 % (0-0.5); Lymphocytes Absolute Auto 1.36 K/mm3 (0.9-3.2); Lymphocytes Percent Auto 19.6 % (18.3-44.2); Mean Corpuscular HGB Conc 34.8 g/dl (32-36); Mean Corpuscular Hemoglobin 31.2 pg (26-34); Mean Corpuscular Volume 89.5 fl (80-100); Mean Platelet Volume 11.3 fl (7.4-10.4); Monocytes Absolute Auto 0.6 K/mm3 (0.1-0.6); Monocytes Percent Auto 8.5 % (2.6-8.5); Neutrophils Absolute Auto 4.9 K/mm3 (1.3-6.7); Neutrophils Percent Auto 70.4 % (45.5-73.1); Platelet Count Result 230 k/mm3 (150-375); Red Blood Count 5.16 M/mm3 (4.6-6.20); Red Cell Distribution Width 12.5 % (11.5-14.5); White Blood Count 6.9 K/mm3 (4.5-10.0)
[2024-12-16 21:44] LABS: Alanine Aminotransferase 27 U/L (6-50); Albumin Level 4.6 g/dL (3.5-5.1); Alkaline Phosphatase 77 U/L (38-126); Anion Gap 12 mmol/L (4-12); Aspartate Amino Transferase 25 U/L (17-59); Bilirubin,Total 0.5 mg/dL (0.2-1.3); Blood Urea Nitrogen 33 mg/dL (9-20); Calcium 9.6 mg/dL (8.4-10.2); Carbon Dioxide 28 mmol/L (22-30); Chloride 97 mmol/L (98-107); Estimated CRCL calculation 41 ml/min; Estimated Glomerular Filt Rate 41; Glucose 152 mg/dL (65-110); Potassium 3.7 mmol/L (3.4-5.0); Sodium 137 mmol/L (137-145)
[2024-12-16 21:45] LABS: Prothrombin Time 13.3 Seconds (11.1-14.7)
[2024-12-16 21:46] LABS: Partial Thromboplastin Time 27.6 Seconds (22.3-36.8)
[2024-12-16 21:56] LABS: Troponin I < 0.012 ng/mL (0.000-0.034)
[2024-12-17] VITALS (37 sets, daily range): BP systolic 116–143; BP diastolic 68–86; PULSE 69–89; RESP 7–58; O2SAT 91–100
--- OUTSIDE RECORDS SUMMARY | 2024-12-17 01:52 | XMS_ITS | Clinical Summary ---
Author Organization [facility] Facility Address [address] [place] [address] Care Team Providers Care Game Farm Helper Name Role Phone Omer Larson MD Primary Care Provider [phone] Medications chlorthalidone 25 MG tablet Take 1 tablet (25 mg total) by mouth 3 times weekly: Fri and Friday morning 45 tablet 1 11/12/2023 Active Encounters Date Type Department Care Team Description 12/02/2024 Documentation Only [facility], [address] [address] Rocky Domínguez DO from Last [...] Description 02/15/2025 3:00 PM CDT Office Visit [facility] Care, [facility] [address] [facility] [address] [place] [address] Rocky Domínguez DO [address] [place] [address] Health Maintenance Due Date Last Done Comments [...] patient's age to complete this topic Insurance [facility] Care Teams Game Farm Helper Relationship Specialty Start Date End Date Omer Larson MD [address] [facility] [address] [place] [address] PCP - General Internal Medicine 08/05/23
--- OUTSIDE RECORDS SUMMARY | 2024-12-17 01:52 | XMS_ITS | Clinical Summary ---
Author Organization [facility] Address [address] [place] [address] Care Team Providers Care Behavioral Modification Assistant Name Role Phone Juliano Wylie MD Unavailable [phone] Source Comments [facility],non-owned Affiliates and Associated Physician Practices is amultiple site organization consisting of ambulatory clinics and hospital sitesin [place], [place], [place] and [place]. This disclosure is being madepursuant to the Care Everywhere program and may not contain all information available regarding this patient. Last updated 18.[facility] [employer] Allergies No known active allergies Medications * [...] Comments Blood Pressure 132/82 12/29/2013 10:25 AM ADVERTISING DIRECTOR Pulse 74 12/29/2013 10:25 AM ADVERTISING DIRECTOR Temperature - - Respiratory Rate - - Oxygen Saturation - - Inhaled Oxygen Concentration - - Weight 104.1 kg (229 lb 9.6 oz) 014 10:25 AM ADVERTISING DIRECTOR Height 177 cm (5' 9.69 ) 12/29/2013 10: 25 AM ADVERTISING DIRECTOR Body Mass Index 33.24 12/29/2013 10:25 AM ADVERTISING DIRECTOR Plan of Treatment Health Maintenance Due Date [...] age to complete this topic Care Teams Behavioral Modification Assistant Relationship Specialty Start Date End Date Juliano Wylie MD Neurology 12/29/13
--- OUTSIDE RECORDS SUMMARY | 2024-12-17 01:52 | XMS_ITS | Patient Health Summary ---
Author Organization [facility] Address [address] [place] [address] Care Team Providers Care Shovel Logger Name Role Phone Juliano Wylie MD Unavailable [phone] Note from [facility],non-owned Affiliates and Associated Physician Practices is amultiple site organization consisting of ambulatory clinics and hospital sitesin [place], [place], [place] and [place]. This disclosure is being madepursuant to the Care Everywhere program and may not contain all information available regarding this patient. Last updated 18.[facility] [employer] Allergies No known active allergies Medications * [...] Comments Blood Pressure 132/82 12/29/2013 10:25 AM BLAST FURNACE HELPER Pulse 74 12/29/2013 10:25 AM BLAST FURNACE HELPER Temperature - - Respiratory Rate - - Oxygen Saturation - - Inhaled Oxygen Concentration - - Weight 104.1 kg (229 lb 9.6 oz) 014 10:25 AM BLAST FURNACE HELPER Height 177 cm (5' 9.69 ) 12/29/2013 10: 25 AM BLAST FURNACE HELPER Body Mass Index 33.24 12/29/2013 10:25 AM BLAST FURNACE HELPER Care Teams Shovel Logger Relationship Specialty Start Date End Date Juliano Wylie MD Neurology 12/29/13
--- OUTSIDE RECORDS SUMMARY | 2024-12-17 01:52 | XMS_ITS | Continuity of Care Document ---
Author Organization [facility] Address [address] [place] [address] Phone Care Team Providers Care Tnt Line Supervisor Name Role Phone Iesha WEBB, Cam Unavailable Unavailable Advance Directives Directive Yes / No Effective Date File Name No Information Encounters Encounter Description Practice Location Reason(s) For Visit Diagnoses Date Provider Providers Copied on Encounter Orthopedic [facility], [address], [id number], [place] tel:[phone] [facility] No Information 3 Iesha Levy. [address] [facility], [facility] [address], [place], [place], [id number] , [place]. tel: [phone] Family History Family Member Type Diagnosis Age At Onset No Information Payers Payer name Insurance type Covered constitution party ID Authoriza tion(s) No Information Social [...]
--- OUTSIDE RECORDS SUMMARY | 2024-12-17 01:52 | XMS_ITS | Encounter Summary ---
Author Organization [facility] Address [address] [place] [address] Care Team Providers Care Mercerizer Name Role Phone Omer Larson MD Primary Care Provider [phone] Reason for Referral * Diagnostic Imaging (Routine) - Closed Specialty Diagnoses / Procedures Referred By Contac t Referred To Contact Diagnoses Cervical radiculopathy Procedures XR Spine Cervical 2 or 3 Views Cam Funez MD Phone: tel: fax: [address] [address] Referral ID Status Reason Start Date Expiration Date Visits Re quested Visits Authorized [id number] Closed 07/31/2018 02/09/2020 1 1 Encounter Details Date Type Department Care Team (Late st Contact Info) Description 07/31/2018 Community Orders [facility] EpicCare Link Cam Funez MD [address] [facility] [address] [place] [address] Cervical radiculopathy (Primary Dx) Social History Tobacco Use Types Packs/Day Years Used Date Smoking Tobacco: Never Assessed Sex and Gender Information Value Date Recorded Sex Assigned at Not on file Legal Sex Male 8:34 AM VAULT TELLER Gender Identity Not on file Sexual Orientation [...] nos documented in this encounter Care Teams Mercerizer Relationship Specialty Start Date End Date Omer Larson MD [address] [address] PCP - General 12/25/16 documented as of this encounter
--- OUTSIDE RECORDS SUMMARY | 2024-12-17 01:52 | XMS_ITS | Continuity of Care Document ---
Author Organization [facility] Address [address] [place] [address] Phone Care Team Providers Care Cpr Ambulance Driver Name Role Phone Beltran WINTER, OTR/L, CHT, Anuel Unavailable Julianna vailable Procedures Procedure Date Orthotic Mgmt and Training Wrist Immobilization w/ clam shell Elastic Stocknett Short Opponens Hand based Elastic Stocknett Advance Directives Directive Yes / No Effective Date File Name No Information Encounters Encounter Description Practice Location Reason(s) For Visit Diagnoses Date Provider Providers Copied on Encounter [facility], [address] [facility] [address], [place], [id number], tel:[phone] [place] No Information Beltran Agee. [address] [facility], [address], [place], [address], [place]. tel:[phone] Referring Provider: Nima Lugo, [address], [place], [address]. tel:[phone] [facility], [id number], tel:[phone] [place] Pain in left handOther specified soft tissue disordersStiffne ss of left hand, not elsewhere classifiedOther lack of coordinationSpra in of metacarpophalang eal joint of left thumb, subs 7 Beltran Agee. [address] [facility], [address], [place], [address], [place]. [phone] Referring Provider: Nima Price, [address] [facility] [address], [place], [address]. tel:[phone] Family History Family Member Type Diagnosis Age At Onset No Information Payers Payer name Insurance type Covered democrat ID Hilary mcdonald(s) Estefania [id number] Med[employer] EPO [facility] Social History Type Description Quantity Date [...]
--- OUTSIDE RECORDS SUMMARY | 2024-12-17 01:52 | XMS_ITS | Referral Summary ---
Author Organization [facility] Address [address] [place] [address] Care Team Providers Care Vp Ad Products And Planning Name Role Phone Juliano Wylie MD Unavailable [phone] [facility],non-owned Affiliates and Associated Physician Practices is amultiple site organization consisting of ambulatory clinics and hospital sitesin [place], [place] and [place]. This disclosure is being madepursuant to the Care Everywhere program and may not contain all information available regarding this patient. Last updated 18.[facility] [employer] Allergies No known active allergies Medications * [...] Comments Blood Pressure 132/82 12/29/2013 10:25 AM ACCOUNT SERVICES ASSOCIATE Pulse 74 12/29/2013 10:25 AM ACCOUNT SERVICES ASSOCIATE Temperature - - Respiratory Rate - - Oxygen Saturation - - Inhaled Oxygen Concentration - - Weight 104.1 kg (229 lb 9.6 oz) 014 10:25 AM ACCOUNT SERVICES ASSOCIATE Height 177 cm (5' 9.69 ) 12/29/2013 10: 25 AM ACCOUNT SERVICES ASSOCIATE Body Mass Index 33.24 12/29/2013 10:25 AM ACCOUNT SERVICES ASSOCIATE Plan of Treatment Not on file Care Teams Vp Ad Products And Planning Relationship Specialty Start Date End Date Juliano Wylie MD Neurology 12/29/13
--- OUTSIDE RECORDS SUMMARY | 2024-12-17 01:52 | XMS_ITS | Referral Summary ---
Author Organization [facility] Address [address] [place] [address] Care Team Providers Care Advertising Agency Manager Name Role Phone Omer Larson MD Primary Care Provider [phone] Encounters Date Type Department Care Team Description 12/01/2024 Orders Only [facility] [address] [place] [address] [address] [place] [address] Omer Larson MD from Last [...] each 08/26/20 22 Active blood glucose diagnostic (KinoptoTouch Verio test strips) strip USE TO TEST 3 TIMES A WEEK 25 strip 5 08/14/20 23 Active lancets (KinoptoTouch Delica Plus Lancet) 30 gauge misc USE [...] (10/11/2020): Added automatically from request for surgery [id number] Immunizations Name Administration Dates Next Due Influenza, [...] on file Legal Sex Male 8:34 AM ADVERTISING COPYWRITER Gender Identity Not on file Sexual Orientation Not on file Last Filed Vital Signs Vital Sign Reading Time Taken Comments Blood Pressure 158/91 06/24/2024 1:43 PM CDT Pulse 85 06/24/2024 1:43 PM CDT Temperature 36.3 C (97.4 F) 11/15/2020 10:52 AM ADVERTISING COPYWRITER Respiratory Rate 12 10/13/2020 4:20 PM ADVERTISING COPYWRITER Oxygen Saturation 98% 08/12/2022 1:11 PM CDT Inhaled Oxygen Concentration - - Weight 94.8 kg (209 lb) 07/22/2024 3:16 PM CDT Height 167.6 cm (5' 6 ) 07/22/2024 3:16 PM CDT Body Mass Index 33.73 07/22/2024 3:16 PM CDT Plan of Treatment Not on file Procedures Procedure Name Priority Date/Time Associated Diagnosis Comments CARDIOLOGY DOCUMENT SCAN 12/01/2024 4:42 PM ADVERTISING COPYWRITER POCT HEMOGLOBIN A1C Routine 06/24/2024 1 :46 PM CDT Type 2 diabetes mellitus without complication, without long-term current use of insulin (CMS/[facility]) (HCC) POCT LIPID PANEL Routine 08/19/2023 1:20 PM CDT Hyperlipidemia, unspecified hyperlipidemia type PSA SCREEN Routine 08/12/2022 1:49 PM CDT Impaired fasting glucose Essential hypertension Hyperlipidemia, unspecified hyperlipidemia type Routine general medical examination at a [facility] care facility ALBUMIN CREATININE RATIO, URINE Routine 06/02/2021 10:22 AM CDT RENAL FUNCTION PANEL Routine 06/01/2021 3:29 PM CDT COLONOSCOPY Routine 12/26/2016 from Last 3 Months or Most Recently Relevant to Health Maintenance Results * Cardiology Document Scan (12/01/2024 4:42 PM ADVERTISING COPYWRITER) Anatomical Region Laterality Modality Other us Omer [...] PSA screen (08/12/2022 1:49 PM CDT) Pathologist [facility] PSA 0.9 0.0 - 4.0 ng/mL [facility] - 01 Comment: Lori ECLIA methodology. According to the [place] [employer], Serum PSA should decrease and [...] 08/13/2022 8:15 AM CDT Performed at: - [facility] [id number] Hand Marker: Harish Flannery PhD, Phone: [phone] us Omer Larson MD LAB BLOOD ORDERABLES [...] 06/03/2021 1:20 PM CDT SPLIT 06/01/2021 FROM [id number] us Rocky Domínguez DO LAB URINE ORDERABLES Final Result Performing Organization Address [facility] Co de Phone Number [facility] [address] [place] [address] * (ABNORMAL) Renal function panel (06/01/2021 3:29 PM CDT) Glucose 128 65 - 139 mg/dL [facility] Comment: Non-fasting reference interval BUN 34(H) 7 - 25 mg/dL [facility] Creatinine 1.68(H) 0.70 - 1.25 mg/dL [facility] Comment: For patients >49 years of age, the reference limit for Creatinine is approximately 13% higher for people identified as -German. eGFR NON-AFR. [place] 43(L) > OR = 60 mL/min/1. 73m2 [...] LAB BLOOD ORDERABLES Final Result CORTEZ [facility] [address] [place] [address] * Colonoscopy (12/26/2016) Anatomical Region Laterality Modality Other Narrative 12/26/2016 Pt reports he had in 2017 it was normal repeat in 10 years Historical Provider ENDOSCOPY PROCEDURES Katherine l Result from Last 3 Months or Most Recently Relevant to Health Maintenance Insurance [facility] [employer] [place] [employer] [place] [employer] [place] Care Teams Advertising Agency Manager Relationship Specialty Start Date End Date Omer Larson MD [address] [facility] [address] [address] PCP - General 12/25/16
--- OUTSIDE RECORDS SUMMARY | 2024-12-17 01:52 | XMS_ITS | Continuity of Care Document ---
Author Organization [facility] Address [address] [place] [address] [address] [place] [address] Phone Care Team Providers Care Crutch Maker Name Role Phone Kaycee Olivarez Unavailable Unavailable Advance Directives Directive Yes / No Effective Date File Name No Information Encounters Encounter Description Practice Location Reason(s) For Visit Diagnoses Date Provider Providers Copied on Encounter [facility], [address], [place], [place], [id number], [place] tel:[phone] [facility] No Information [address] Juan[address] Benoit. [address] [facility] [address] , [address], [place], [address], [place]. tel:[phone] Family History Family Member Type Diagnosis Age [...]
--- OUTSIDE RECORDS SUMMARY | 2024-12-17 01:52 | XMS_ITS | Clinical Summary ---
Author Organization [facility] al Address [address] [place] [address] Care Team Providers Care Consulting Intern Name Role Phone Omer Larson MD Primary Care Provider [phone] Allergies No known active allergies Medications vitamin [...] (10/11/2020): Added automatically from request for surgery [id number] Encounters Date Type Department Care Team Description 12/01/2024 Orders Only [facility] [address] [place] [address] [address] [place] [address] Omer Larson MD from Last 3 Months [...] on file Legal Sex Male 8:34 AM OBSERVATION ASSISTANT Gender Identity Not on file Sexual Orientation Not on file Obstetrics History Last Filed Vital Signs Vital Sign Reading Time Taken Comments Blood Pressure 158/91 06/24/2024 1:43 PM CDT Pulse 85 06/24/2024 1:43 PM CDT Temperature 36.3 C (97.4 F) 11/15/2020 10:52 AM OBSERVATION ASSISTANT Respiratory Rate 12 10/13/2020 4:20 PM OBSERVATION ASSISTANT Oxygen Saturation 98% 08/12/2022 1:11 PM CDT [...] Comments CARDIOLOGY DOCUMENT SCAN 12/01/2024 4:42 PM OBSERVATION ASSISTANT POCT HEMOGLOBIN A1C Routine 06/24/2024 1 :46 [...] * Cardiology Document Scan (12/01/2024 4:42 PM OBSERVATION ASSISTANT) Anatomical Region Laterality Modality Other us Omer [...] Comment: Lori ECLIA methodology. According to the [place] [employer], Serum PSA should decrease and [...] 08/13/2022 8:15 AM CDT Performed at: - [address] [id number] Stereo Equipment Repairer: Harish Flannery PhD, Phone: [phone] us Omer Larson MD LAB BLOOD ORDERABLES Final Re sult [facility] - 01 * Albumin Creatinine Ratio, [...] 06/03/2021 1:20 PM CDT SPLIT 06/01/2021 FROM [id number] Rocky Domínguez DO LAB URINE ORDERABLES Final Result Performing Organization Address City/[facility]/ZIP Co de Phone Number [facility] [address] [place] [address] * (ABNORMAL) Renal function panel (06/01/2021 3:29 PM CDT) Glucose 128 65 - 139 mg/dL [facility] Comment: Non-fasting reference interval BUN 34(H) 7 - 25 mg/dL [facility] Creatinine 1.68(H) 0.70 - 1.25 mg/dL [facility] Comment: For patients >49 years of age, the reference limit for Creatinine is approximately 13% higher for people identified as -Sri Lankan. eGFR NON-AFR. CITIZEN OF [place] 43(L) > OR = 60 mL/min/1. 73m2 [...] LAB BLOOD ORDERABLES Final Result CORTEZ [facility] [address] [place] [address] * Colonoscopy (12/26/2016) Anatomical Region Laterality Modality Other Narrative 12/26/2016 Pt reports he had in 2017 it was normal repeat in 10 years Historical Provider ENDOSCOPY PROCEDURES Katherine l Result from Last 3 Months or Most Recently Relevant to Health Maintenance [place] [employer] [place] [employer] [place] Care Teams Consulting Intern Relationship Specialty Start Date End Date Omer Larson MD [address] [facility] [address], [place] [address] PCP - General 12/25/16
--- NOTE | 2024-12-17 01:54 | ED.NEUROSD ---
HPI - Neuro Symptoms/Deficit General Chief Complaint: Neuro Symptoms/Deficit Stated Complaint: right-side of body is numb since 1000 Time Seen by Provider: 12/17/24 01:18 History of Present Illness HPI Narrative: 64-year-old male with a past medical history including hypertension and pre diabetes presenting to the emergency department with right-sided paresthesias onset 10:00 a.m.. Patient was at work, doing normal activities when he suddenly felt his right-sided go numb and he felt paresthesias in the right face, right-sided upper extremity and right leg. Gradually got better throughout the day and nearly resolved but he still feels some residual paresthesias. Does not feel completely number anesthetic in the right arm or leg but states that he feels some slight pins and needle sensation. He also had a mild chest discomfort that he felt was anxiety related as it went away spontaneously without any issue. Presently still having the sensation is right-sided body but denies any headache, vision changes, chest pain, shortness a breath, nausea, vomiting, abdominal pain, back pain. No history of TIA or stroke in the past. Was otherwise in his normal state of health. Denies any falls or injury. Does not take any aspirin or anticoagulation medications. Related Data Home Medications ?Medication ?Instructions ?Recorded ?Confirmed ?Last Taken ?Type bupropion HCl 300 mg 24 hr tablet, 300 mg PO QAM 05/18/20 10/10/22 07/18/20 History extended release (Wellbutrin XL) olmesartan 40 mg tablet (Benicar) 40 mg PO DAILY 05/18/20 10/10/22 07/18/20 History sildenafil 100 mg tablet (Viagra) 100 mg PO PRN PRN Erectile 05/18/20 10/10/22 Unknown History Dysfunction B Complex-Vitamin B12 1 tab-cap PO DAILY 07/05/20 10/10/22 07/15/20 History Cinnamon 2,000 mg PO DAILY 07/05/20 10/10/22 07/15/20 History ascorbic acid (vitamin C) 1,000 mg 1,600 mg PO DAILY 07/05/20 10/10/22 07/15/20 History tablet (Vitamin C) chlorthalidone 25 mg tablet 25 mg PO DAILY 07/05/20 10/10/22 07/18/20 History cholecalciferol (vitamin D3) 50 2,000 unit PO DAILY 07/05/20 10/10/22 07/15/20 History mcg (2,000 unit) capsule (Vitamin D3) coenzyme Q10 100 mg capsule 200 mg PO DAILY 07/05/20 10/10/22 07/15/20 History (CoQ-10) magnesium 200 mg tablet 400 mg PO DAILY 07/05/20 10/10/22 07/15/20 History zinc 50 mg tablet 100 mg PO DAILY 07/05/20 10/10/22 07/15/20 History alprazolam 0.5 mg tablet 0.5 mg PO DAILY PRN Anxiety 10/08/20 10/10/22 Unknown History Allergies Allergy/AdvReac Type Severity Reaction Status Date / Time No Known Allergies Allergy Verified 12/16/24 20:49 Review of Systems Review of Systems: As reviewed above in [facility] Past Medical History Medical History (Updated 12/17/24 @ 05:49 by Rojas Triplett MD) Paresthesia of right upper and lower extremity Arthritis Ventral hernia without obstruction or gangrene Depression Paralysis of vocal cords HTN (hypertension) GERD (gastroesophageal reflux disease) Surgical History Surgical History History of umbilical hernia repair 07/19/2020 with mesh Hx of tonsillectomy Hx of hand surgery Hx of arthroscopic knee surgery History of shoulder surgery Family History Family History Father Hypertension CAD (coronary artery disease) Pacemaker Heart disease Cerebrovascular accident Mother Diabetes mellitus Dementia Sibling Hypertension Diabetes mellitus Social History Social History Smoking status: Never smoker Tobacco type: cigarettes Alcohol intake: current Drinks per week: 3 Substance use: never Living arrangements: with family Occupation/Education: occupation Additional occupation/education comments: [employer] Spiritual care concerns: No Exam Narrative: GENERAL: [Well-appearing, well-nourished, and in no acute distress.] HEAD: [Normocephalic, atraumatic.] EYES: [PERRLA and EOMI.] ENT: Nares clear, no rhinorrhea or epistaxis. Mucous membranes moist. NECK: Supple. CHEST: [Clear to auscultation. No respiratory distress.] HEART: [Regular rate and rhythm]. No murmur heard. [Normal peripheral pulses.] ABDOMEN: [Soft, nondistended], [nontender], [No rigidity or guarding] EXTREMITIES: Normal range of motion. [No edema.] SKIN: Warm, dry, no rash. NEURO: Subjected right-sided decrease in sensation in the face arms and legs but full strength throughout both arms, legs, no facial asymmetry, no peripheral visual deficits, no ataxia in the arms or legs. No drift in the arms or legs. PSYCH: [Normal mood and affect.] Course Vital Signs Vital signs: Vital Signs Temperature 36.8 C 12/16/24 21:09 Pulse Rate 98 12/16/24 21:09 Respiratory Rate 20 12/16/24 21:09 Blood Pressure 146/94 H 12/16/24 21:09 Pulse Oximetry 100 12/16/24 21:09 Oxygen Delivery Room Air 12/16/24 21:09 Temperature 36.8 C 12/16/24 21:09 Pulse Rate 69 12/17/24 04:00 Respiratory Rate 10 L 12/17/24 04:00 Blood Pressure 143/82 H 12/17/24 03:46 Pulse Oximetry 97 12/17/24 04:00 Oxygen Delivery Room Air 12/16/24 21:09 MDM - Neuro Symptoms/Deficit MDM Narrative Medical decision making narrative: 64-year-old male with history of hypertension and prediabetes presenting with suspicious right-sided paresthesias that began at 10:00 a.m. and he thinks he might have had a stroke or mini-stroke. Patient has a history of TIA or intracranial process such as a stroke or hemorrhage. Has been taking his blood pressure medications regularly. At 10:00 a.m. while he was at work he knows that the right side of his body including face, arm and leg were slightly numb compared to the left. Gradually got better throughout the day and he felt anxious about it. Came to the ER outside the TnK window almost 12 hours after symptom onset. Presently he states his right-sided subjective paresthesias are almost completely resolved but he would obtain a 1 on the NIH stroke scale given the sensory deficit. Given the in improvement from being numb to almost completely resolved likely a TIA in nature however other underlying process such as electrolyte disturbance, cardiac issue, metabolic disturbance or other process is still possible. A CT head and CT angiography of the head neck was ordered given the timeline of his symptoms. CBC, CMP, troponin, chest x-ray and EKG obtained. Prior to obtaining CT angiography patient informs me that he had complete symptomatic resolution. No longer having any paresthesias whatsoever. NIH stroke scale 0. Suspicion for TIA. CT angiography and CT head resulted. CT head shows no acute intracranial findings. CT angiography is also unremarkable. No significant narrowing. Workup shows no leukocytosis or anemia. Normal coagulation study. Normal electrolytes. BUN and creatinine near his baseline. Normal glucose. Normal LFTs. Negative troponin. Chest x-ray shows no focal infiltrates or effusion. EKG shows normal sinus rhythm, no signs of acute ischemia. Patient was re-evaluated and still having no symptoms whatsoever. Normal vital signs. We had shared decision-making at bedside. Patient expressed desire to be discharged at this time. I gave him my concerns about his transient paresthesias and his risk factors raising his suspicion for potential transient ischemic attack or mini stroke. Patient verbalized availability of following up outpatient and I felt comfortable with this as long as we started him on the appropriate medications. We gave him aspirin and Plavix to be discharged upon and order for outpatient MRI was placed and he was given very strict return precautions including any developing stroke-like symptoms that we discussed. Patient was to call 911 or return to the ED if he has any recurrence or new symptoms. Patient verbalized understanding these instructions and he and his felt safe for discharge. Medical Records Attestation: I reviewed the patient's medical records. Lab Data Attestation: I reviewed the patient's lab results. 12/16/24 21:29 12/16/24 21:29 Labs: Lab Results 12/16/24 Range/Units 21:29 WBC 6.9 (4.5-10.0) K/mm3 RBC 5.16 (4.6-6.20) M/mm3 Hgb 16.1 (14.0-18.0) g/dL Hct 46.2 (42.0-52.0) % MCV 89.5 (80-100) fl MCH 31.2 (26-34) pg MCHC 34.8 (32-36) g/dl RDW 12.5 (11.5-14.5) % Plt Count 230 (150-375) k/mm3 MPV 11.3 H (7.4-10.4) fl Immature Gran % (Auto) 0.3 (0-0.5) % Neut % (Auto) 70.4 (45.5-73.1) % Lymph % (Auto) 19.6 (18.3-44.2) % [place] % (Auto) 8.5 (2.6-8.5) % Eos % (Auto) 0.9 (0-4.4) % Baso % (Auto) 0.3 (0.2-1.2) % Lymph # (Auto) 1.36 (0.9-3.2) K/mm3 [place] # (Auto) 0.6 (0.1-0.6) K/mm3 Eos # (Auto) 0.1 (0-0.3) K/mm3 Baso # (Auto) 0.0 (0.0-0.1) K/mm3 Abs Immat Gran (auto) 0.02 (0.00-0.031) K/mm3 Absolute Neuts (auto) 4.9 (1.3-6.7) K/mm3 Absolute Nucleated RBC 0.000 (0.0-0.012) K/mm3 Nucleated RBC % 0.0 (0.0-0.2) % PT 13.3 (11.1-14.7) Seconds INR 1.0 APTT 27.6 (22.3-36.8) Seconds Sodium 137 (137-145) mmol/L Potassium 3.7 (3.4-5.0) mmol/L Chloride 97 L (98-107) mmol/L Carbon Dioxide 28 (22-30) mmol/L Anion Gap 12 (4-12) mmol/L BUN 33 H (9-20) mg/dL Creatinine 1.68 H (0.7-1.3) mg/dL Estim Creat Clear Calc 41 ml/min Estimated GFR 41 L (59 - ) Glucose 152 H (65-110) mg/dL Calcium 9.6 (8.4-10.2) mg/dL Total Bilirubin 0.5 (0.2-1.3) mg/dL AST 25 (17-59) U/L ALT 27 (6-50) U/L Alkaline Phosphatase 77 (38-126) U/L Troponin I < 0.012 (0.000-0.034) ng/mL Total Protein 7.0 (6.3-8.2) g/dL Albumin 4.6 (3.5-5.1) g/dL Vitamin B12 Pending Folate Pending Imaging Data Attestation: I personally reviewed and interpreted this imaging study as follows: Radiologist's impression: No acute intracranial pathology. Discharge Plan Discharge Clinical Impression: Paresthesia of right upper and lower extremity Patient Disposition: Home, Self-Care Condition: Stable Instructions: Antibiotic Form, Transient Ischemic Attack (ED), Paresthesia (ED) Additional Instructions: Your CT scan and CT angiography of the head/neck are very reassuring and do not show any narrowed vessels, no occlusion, no masses. No evidence of any bleeding or acute stroke, however your symptoms could be considered transient ischemic attack or mini-stroke in the appropriate setting. You do have high risk factors for developing stroke and stroke-like symptoms. Given that you have no symptoms whatsoever at this time and no scan findings that are concerning I believe you can safely get an outpatient MRI as long as we start you on the appropriate medications and get you follow-up with Neurology and your primary doctor. If you have any recurrence of your symptoms, weakness, paresthesias, numbness, slurring of her speech, facial droop or any other concerns you have to call 911 and go to the nearest ER. Patient Language: Prydeinig Prescriptions: New aspirin 81 mg capsule 81 mg PO DAILY Qty: 30 0RF clopidogrel [Plavix] 75 mg tablet 75 mg PO DAILY Qty: 30 0RF No Action tramadol 50 mg tablet 50 mg PO Q6H PRN (Reason: pain) Qty: 20 0RF gabapentin 300 mg capsule 300 mg PO TID 30 Days Qty: 90 0RF sildenafil [Viagra] 100 mg tablet 100 mg PO PRN PRN (Reason: Erectile Dysfunction) Rx Instructions: administer 30 minutes to 4 hours before activity olmesartan [Benicar] 40 mg tablet 40 mg PO DAILY bupropion HCl [Wellbutrin XL] 300 mg tablet extended release 24 hr 300 mg PO QAM chlorthalidone 25 mg tablet 25 mg PO DAILY Cinnamon 2,000 mg PO DAILY magnesium 200 mg Tablet 400 mg PO DAILY zinc 50 mg Tablet 100 mg PO DAILY B Complex-Vitamin B12 1 tab-cap PO DAILY cholecalciferol (vitamin D3) [Vitamin D3] 50 mcg (2,000 unit) Capsule 2,000 unit PO DAILY ascorbic acid (vitamin C) [Vitamin C] 1,000 mg Tablet 1,600 mg PO DAILY coenzyme Q10 [CoQ-10] 100 mg Capsule 200 mg PO DAILY alprazolam 0.5 mg tablet 0.5 mg PO DAILY PRN (Reason: Anxiety) Other Ambulatory Orders: MR brain/brain stem wo con (Routine) Timeframe: 3 Days Location: Determined by Patient Ordered By: Rojas Triplett Follow-up/Referrals: Marsha,Omer Garcia MD [Primary Care Provider] - Scarlet Rodriguez MD [Physician] - 3 Days (TIA rule out) Time of Disposition: 05:50 Quality Stroke Date of last known normal: 12/16/24 Time of last known normal: 10:00 Stroke Scale Stroke Scale 1: Stroke scale date:: 12/17/24 Stroke scale time:: 01:58 1a Level of consciousness: alert-0 1b Level of consciousness questions: answers both correctly-0 1c Level of consciousness commands: obeys both correctly-0 2 Best gaze: normal-0 3 Visual: no visual loss-0 4 Facial palsy: normal-0 5a Motor: left arm: no drift-0 5b Motor: right arm: no drift-0 6a Motor: left leg: no drift-0 6b Motor: right leg: no drift-0 7 Limb ataxia: absent-0 8 Sensory: pinprick less sharp-1 9 Best language: no aphasia-0 10 Dysarthria: normal-0 11 Extinction and inattention: no abnormality-0 Level:: 1
[2024-12-17 06:05] LABS: Folic Acid 19.4 ng/mL (2.76->20); Vitamin B12 > 1000.0 pg/mL (239-931)
== END 2024-12-17 06:13 | disposition home or self-care (01) ==
PROVIDERS: Emergency Provider Student in an Organized Health Care Education/Training Program; PCP Internal Medicine
DX: R20.2 Paresthesia of skin (principal); I10 Essential (primary) hypertension; R73.03 Prediabetes; M19.90 Unspecified osteoarthritis, unspecified site; K21.9 Gastro-esophageal reflux disease without esophagitis; I49.1 Atrial premature depolarization; R94.31 Abnormal electrocardiogram [ECG] [EKG]
CPT/HCPCS: 36415; 70450; 70496; 70498; 71046; 80053; 82607; 82746; 84484; 85025; 85610; 85730; 93005; 99284; Q9967

== ENCOUNTER 2025-10-01 10:28 | Outpatient (CLI) | payer BC, SELFPAY ==
--- OUTSIDE RECORDS SUMMARY | 2025-03-01 05:45 | XMS_ITS ---
Author Organization [facility] Address [address] [place] [address] Care Team Providers Care Hand Driller Name Role Phone XAVIER WEBB, GUADALUPE Primary Care Provider UnavailJennifer Garcia [phone] Allergies No Known Allergies REASON FOR VISIT Right Lumbar Four Lumbar Five Lumbar Five Sacral One Facet Joint Injection Diagnostic Encounters Encounter Location Date Provider Diagnosis [facility] [address] 03/01/2025 Jennifer Rodriguez Plan Of Treatment Next Appt Details Provider Name:Benoit De La Torre, Maude 12/12/2024 12:45:00 PM, [address] [place] [address], [phone], Progress Notes * Ady NOVADOB:1960 (65 yo M)Acc No.[id number]:03/01/2025 Injection Patient: Ady SILVER Provider: Berto Rodriguez MD :1960 A ge:64 Y S ex:Male Date:03/01/2025 Address:[address] [place], [place] [id number] Pcp:GUADALUPE PARK MD Subjective: * Chief Complaints: * Medical History: D iabetes, High Blood Pressure, Kidney Problems. * Allergies: N .K.D.A. Objective: Assessment: Plan: * Treatment: * * Electronic signature of Jennifer Rodriguez MD on 10/01/2025 at 11:35 AM EST Sign off status: Pending * Provider: Berto Rodriguez MD Date: 0 03/01/2025 Generated for Terese hillman/Chintan/Samantha on: 1 12/01/2024 11:35 AM EST
--- OUTSIDE RECORDS SUMMARY | 2025-05-05 08:00 | XMS_ITS ---
Author Organization [facility] Address [address] [place] [address] Care Team Providers Care Gum Dipper Name Role Phone GUADALUPE PARK MD Primary Care Provider Unavailab Jennifer Martinez [phone] REASON FOR VISIT L L4-L5 JA Encounters Encounter Location Date Provider [facility] [address] [place] [address] 05/05/2025 Jennifer Rodriguez Plan Of Treatment Next Appt Details Provider Name:Benoit De La Torre, 1 12/12/2024 12:45:00 PM, [address] [place] [address], [phone], Progress Notes * Ady NOVADOB:1960 (65 yo M)Acc No.[id number]:05/05/2025 Injection Patient: Ady SILVER Provider: Berto Rodriguez MD :1960 A ge:64 Y S ex:Male Date:05/05/2025 Address:[address] [place], [place] [id number] Pcp:GUADALUPE PARK MD Subjective: * Chief Complaints: * Medical History: Objective: Assessment: Plan: * Treatment: * * Electronic signature of Jnenifer Rodriguez MD on 10/01/2025 at 11:36 AM EST Sign off status: Pending * Provider: Berto Rodriguez MD Date: 0 05/05/2025 Generated for Terese hillman/Chintan/Samantha on: 1 12/01/2024 11:36 AM EST
--- OUTSIDE RECORDS SUMMARY | 2025-09-16 05:30 | XMS_ITS ---
Author Organization [facility] Address [address] [place] [address] Care Team Providers Care Music Box Mechanic Name Role Phone GUADALUPE PARK MD Primary Care Provider Unavailab Jennifer Martinez Unavailable [phone] Allergies No Known Allergies REASON FOR VISIT Left Lumbar Four Lumbar Five Epidural Steroid Injection Medications Medication SIG (Take, Route, Frequency, Duration) Notes Start Date End Date Status Sildenafil Citrate 100 MG TAKE 1 TABLET BY MOUTH NEEDED FOR ERECTILE DYSFUNCTION Oral for 90 Active Olmesartan Medoxomil 40 MG TAKE 1 TABLET BY MOUTH DAILY. GENERIC EQUIVALENT FOR BENICAR Oral for 90 Active Plavix 75 MG 1 tablet Orally Once a day Active Aleve 220 MG 2 tablet with food o r milk as needed Orally 3-4 times daily Active Chlorthalidone 15 MG 1 tablet Orally salas ry other day for 30 days 07/06/2024 Active THC GUMMIES 10MG ONE PO QHS Ac tive buPROPion HCl ER (XL) 300 MG TAKE 1 TABL ET BY MOUTH EVERY MORNING Oral for 90 Active Encounters Encounter Location Date Provider Diagnosis [facility] [address] [place] [address] 09/16/2025 Jennifer Rodriguez Lumbar radiculopathy M54.16 Assessments Encounter Date Diagnosis (ICD Code) Assessment Notes Treatment Notes Treatment Clinical Notes Section Notes 09/16/2025 Lumbar radiculopathy (ICD-10 - M54.16) Plan Of Treatment Next Appt Details Provider Name:Benoit De La Torre, 1 12/12/2024 12:45:00 PM, [address] [place] [address], [id number], Progress Notes * Ady NOVADOB:1960 (65 yo M)Acc No.[id number]:09/16/2025 Patient: Ady SILVER Provider: Berto Rodriguez MD :1960 A ge:65 Y S ex:Male Date:09/16/2025 Address:[address] [place], [place] [id number] Pcp:GUADALUPE PARK MD Subjective: * Chief Complaints: * 1 . Left Lumbar Four Lumbar Five Epidural Steroid Injection. * HPI: C omplaints: PROCEDURE: 1. Selective transforaminal nerve root injection at the Left L4-5 Level to block the L5 Nerve root. 2. Epidurography 3. Fluoroscopic imaging for needle placement 4. Radiographic interpretation: Lumbar Spine DIAGNOSIS: 1. Lumbar Radiculopathy MEDICATION USED: 1. Epidural local anesthetic: 5 ml lidocaine 1% 2. Contrast agent:3 ml Omnipaque-300, 3. Epidural local anesthetic:3 ml bupivicacine 0.25% 4. Steroid: 10mg dexamethasone SUBJECTIVE: This patient presents today for a Left Lumbar 4-5 Epidural steroid injection. PROCEDURE DESCRIPTION: Informed consent for the procedure was obtained and the patient signed the procedure consent form. The patient was given sufficient time to ask questions related to the procedure and to discuss expectations and the overall plan of treatment. The patient was brought into the procedure room and placed in the appropriate position for the procedure as noted above. Betadine (or alcohol if the patient carried an iodine allergy history) was used to prepare the skin over the appropriate location for the injection and sterile drapes were applied. Strict aseptic technique was followed during the procedure. A 22 Ga spinal needle was used for the procedure. This was advanced from a left lateral and slightly caudal position and angled upward under the transverse process to place the needle point in close proximity to the nerve root to be blocked just caudal to the pedicle in the AP projection, placing the needle point high up in the neuroforamen. AP, oblique and lateral fluoroscopic images were used for precise needle positioning within the neuroforamen. Once needle placement was confirmed with the injection of contrast agent, the patient received the steroid and local anesthetic as noted above after careful aspiration for CSF and blood. An epidurogram, if done, is reported below. The patient had no ill effects from the procedure. Vital signs were monitored and found to be stable throughout. Repeat examination verified additional paresthesias or numbness in the distribution of the nerve blocked. The patient was taken to and watched in the recovery area for an appropriate period of time and then released to home in the care of a responsible adult once discharge criteria were met and discharge planning/subsequent appointments were made. FLUOROSCOPIC IMAGING FINDINGS: An initial survey of the spine in the area noted was performed with the C-arm fluoroscope. The following were noted: 1. moderate degenerative changes were notated in the lumbar spine radiographic intepretation: Lumbar spine 2 views EPIDUROGRAM FINDINGS: Once the needle was properly placed within the epidural nerve root sleeve and after careful aspiration to check for CSF and blood, the contrast agent noted above was injected to observe the dye flow pattern in the area injected. Contrast was seen to flow freely in a retrograde and anterograde fashion along the nerve root sleeve into the central epidural space from L4-5. There was no evidence of cut off of a nerve root sleeve or impairment of dye flow into any area. COMPLICATIONS: NONE RESULTS: ___% pain relief achieved PLAN: 1. Follow post procedure instructions and complete post procedure diary. 2. Continue on present medications. 3. Follow up by telephone in a few days and return for follow up appointment within several weeks to check on response to the injection or to repeat the injection and to make any necessary medication adjustment and determine subsequent treatment steps. * Medical History: D iabetes, High Blood Pressure, Kidney Problems. * Medications: T aking Plavix 75 MG Tablet 1 tablet Orally Once a day , Taking Chlorthalidone 15 MG Tablet 1 tablet Orally every other day , Taking Aleve 220 MG Tablet 2 tablet with food or milk as needed Orally 3-4 times daily , Taking THC GUMMIES 10MG ONE PO QHS , Taking buPROPion HCl ER (XL) 300 MG Tablet Extended Release 24 Hour TAKE 1 TABLET BY MOUTH EVERY MORNING Oral , Taking Olmesartan Medoxomil 40 MG Tablet TAKE 1 TABLET BY MOUTH DAILY. GENERIC EQUIVALENT FOR BENICAR Oral , Taking Sildenafil Citrate 100 MG Tablet TAKE 1 TABLET BY MOUTH NEEDED FOR ERECTILE DYSFUNCTION Oral * Allergies: N .K.D.A. Objective: * Vitals: Assessment: * Assessment: 1. L umbar radiculopathy - M54.16 (Primary) Plan: * Treatment: * Procedures: P reserved disc space L3-4 Moderate disc space narrowing L4-5 Moderate to advanced spondylitic changes L3-4 and L4-5. * Procedure Codes: 6 4483 INJ FORAMEN EPIDURAL L/S, Modifiers: LT , 04160 X-RAY EXAM OF LOWER SPINE, Modifiers: LT , J1100 INJ DEXETHOSONE SODIM PHOSHATE 1 MG, Units: 10.00 , Modifiers: JZ * * Electronic signature of Jennifer Rodriguez MD on 10/01/2025 at 11:35 AM EST Sign off status: Pending * Provider: Berto Rodriguez MD Date: 11/16/2024 Generated for Terese hillman/Chintan/Narcisaitting on: 12/01/2024 11:35 AM EST History and Physical Notes * HPI (History of Present Illness) Category Sub-Category Detail Notes Category Not es Complaints PROCEDURE: 1. Selective transforaminal nerve root injection at the Left L4-5 Level to block the L5 Nerve root. 2. Epidurography 3. Fluoroscopic imaging for needle placement 4. Radiographic interpretation: Lumbar Spine DIAGNOSIS: 1. Lumbar Radiculopathy MEDICATION USED: 1. Epidural local anesthetic: 5 ml lidocaine 1% 2. Contrast agent:3 ml Omnipaque-300, 3. Epidural local anesthetic:3 ml bupivicacine 0.25% 4. Steroid: 10mg dexamethasone SUBJECTIVE: This patient presents today for a Left Lumbar 4-5 Epidural steroid injection. PROCEDURE DESCRIPTION: Informed consent for the procedure was obtained and the patient signed the procedure consent form. The patient was given sufficient time to ask questions related to the procedure and to discuss expectations and the overall plan of treatment. The patient was brought into the procedure room and placed in the appropriate position for the procedure as noted above. Betadine (or alcohol if the patient carried an iodine allergy history) was used to prepare the skin over the appropriate location for the injection and sterile drapes were applied. Strict aseptic technique was followed during the procedure. A 22 Ga spinal needle was used for the procedure. This was advanced from a left lateral and slightly caudal position and angled upward under the transverse process to place the needle point in close proximity to the nerve root to be blocked just caudal to the pedicle in the AP projection, placing the needle point high up in the neuroforamen. AP, oblique and lateral fluoroscopic images were used for precise needle positioning within the neuroforamen. Once needle placement was confirmed with the injection of contrast agent, the patient received the steroid and local anesthetic as noted above after careful aspiration for CSF and blood. An epidurogram, if done, is reported below. The patient had no ill effects from the procedure. Vital signs were monitored and found to be stable throughout. Repeat examination verified additional paresthesias or numbness in the distribution of the nerve blocked. The patient was taken to and watched in the recovery area for an appropriate period of time and then released to home in the care of a responsible adult once discharge criteria were met and discharge planning/subsequent appointments were made. FLUOROSCOPIC IMAGING FINDINGS: An initial survey of the spine in the area noted was performed with the C-arm fluoroscope. The following were noted: 1. moderate degenerative changes were notated in the lumbar spine radiographic intepretation: Lumbar spine 2 views EPIDUROGRAM FINDINGS: Once the needle was properly placed within the epidural nerve root sleeve and after careful aspiration to check for CSF and blood, the contrast agent noted above was injected to observe the dye flow pattern in the area injected. Contrast was seen to flow freely in a retrograde and anterograde fashion along the nerve root sleeve into the central epidural space from L4-5. There was no evidence of cut off of a nerve root sleeve or impairment of dye flow into any area. COMPLICATIONS: NONE RESULTS: ___% pain relief achieved PLAN: 1. Follow post procedure instructions and complete post procedure diary. 2. Continue on present medications. 3. Follow up by telephone in a few days and return for follow up appointment within several weeks to check on response to the injection or to repeat the injection and to make any necessary medication adjustment and determine subsequent treatment steps.
--- OUTSIDE RECORDS SUMMARY | 2025-09-22 04:30 | XMS_ITS ---
Author Organization [facility] Address [address] [place] [address] Care Team Providers Care Electrical Journeyman Name Role Phone GUADALUPE PARK MD Primary Care Provider Unavailab Jennifer Martinez Unavailable [phone] Benoit De La Torre Unavailable [phone] REASON FOR VISIT disc pain Medications Medication SIG (Take, Route, Frequency, Duration) Notes Start Date End Date Status Medrol 4 MG as directed Orally 6 tabs day 1, 5 tabs day 2, 4 tabs day 3, 3 tabs day 4, 2 tabs day 5, 1 tab day 6 for 6 days 09/22/2025 Active Aleve 220 MG 2 tablet with food o r milk as needed Orally 3-4 times daily Active Chlorthalidone 15 MG 1 tablet Orally salas ry other day for 30 days 07/06/2024 Active THC GUMMIES 10MG ONE PO QHS Ac tive Plavix 75 MG 1 tablet Orally Once a day Active Sildenafil Citrate 100 MG TAKE 1 TABLET BY MOUTH NEEDED FOR ERECTILE DYSFUNCTION Oral for 90 Active Olmesartan Medoxomil 40 MG TAKE 1 TABLET BY MOUTH DAILY. GENERIC EQUIVALENT FOR BENICAR Oral for 90 Active buPROPion HCl ER (XL) 300 MG TAKE 1 TABL ET BY MOUTH EVERY MORNING Oral for 90 Active Encounters Encounter Location Date Provider Diagnosis [facility] [address] [place] [address] 09/22/2025 Benoit De La Torre Lumbar radiculopathy M54.16 and Spinal stenosis, lumbar region with neurogenic claudication M48.062 Assessments Encounter Date Diagnosis (ICD Code) Assessment Notes Treatment Notes Treatment Clinical Notes Section Notes 09/22/2025 Lumbar radiculopathy (ICD-10 - M54.16) Assessment is unchanged from 08/25/25 except as denoted below. 09/22/2025 Spinal stenosis, lumbar region with neurogenic claudication (ICD-10 - M48.062) Assessment is unchanged from 08/25/25 except as denoted below. 09/22/2025 Other Notes: Significant time was spent due to complex decision-making as a result of the patient's complicated pain issues. The plan is as follows: Patient will continue exercise therapy regimen. Suspect pt's pain and symptoms s/p his recent lumbar JA is due to nerve root irrtation and radiculitis. We will order an MRI of the lumbar spine to evaluate for possible worsening stenosis vs. HNP as a cause of the patient's radicular pain symptoms. We will review imaging at a follow-up visit and plan for next treatment steps. Pt inquires about an opioid pain medication for his acute flare up of pain. Pt does note he uses THC regularly. Explained to pt that since he uses THC, we will not prescribe a controlled substance as THC is a federally illicit substance, and it is [place] [facility] [place] prescribe opioids if a patient uses any federally illicit substance. Pt expresses understanding. Will prescribe a Medrol Dose Pack for the patient's acute pain and inflammation. Discussed potential medication side effects/risks/po tential drug interactions with the patient. Advised patient to not take any NSAIDs while taking Medrol Dose Pack. Advised pt to monitor his blood sugar while taking the steroid due to steroids increasing blood sugar. The patient expresses understanding. The patient denies a history of kidney or liver disease. We will not add or change any medications at this time as the patient is currently tolerating all medications with no significant side effects. Advised pt to contact clinic if they develop any new/worsening symptoms or pain The total encounter time for today's visit was 30 minutes which was spent on preparation for the visit, e.g. chart review, and in the activities documented in this note. Please refer back to the HPI and physical exam sections of this note for further details regarding this encounter. Assessment is unchanged from 08/25/25 except as denoted below. Plan Of Treatment Medication Medication Name Sig Start Date Stop Date Notes Medrol 4 MG as directed Orally 6 tabs day 1, 5 tabs day 2, 4 tabs day 3, 3 tabs day 4, 2 tabs day 5, 1 tab day 6 for 6 days 09/22/2025 Treatment Notes Assessment Notes Other Notes: Significant time was spent due to complex decision-making as a result of the patient's complicated pain issues. The plan is as follows: Patient will continue exercise therapy regimen. Suspect pt's pain and symptoms s/p his recent lumbar JA is due to nerve root irrtation and radiculitis. We will order an MRI of the lumbar spine to evaluate for possible worsening stenosis vs. HNP as a cause of the patient's radicular pain symptoms. We will review imaging at a follow-up visit and plan for next treatment steps. Pt inquires about an opioid pain medication for his acute flare up of pain. Pt does note he uses THC regularly. Explained to pt that since he uses THC, we will not prescribe a controlled substance as THC is a federally illicit substance, and it is [place] [facility] [place] to prescribe opioids if a patient uses any federally illicit substance. Pt expresses understanding. Will prescribe a Medrol Dose Pack for the patient's acute pain and inflammation. Discussed potential medication side effects/risks/potential drug interactions with the patient. Advised patient to not take any NSAIDs while taking Medrol Dose Pack. Advised pt to monitor his blood sugar while taking the steroid due to steroids increasing blood sugar. The patient expresses understanding. The patient denies a history of kidney or liver disease. We will not add or change any medications at this time as the patient is currently tolerating all medications with no significant side effects. Advised pt to contact clinic if they develop any new/worsening symptoms or pain The total encounter time for today's visit was 30 minutes which was spent on preparation for the visit, e.g. chart review, and in the activities documented in this note. Please refer back to the HPI and physical exam sections of this note for further details regarding this encounter. Next Appt Details Provider Name:Benoit De La Torre, 1 12/12/2024 12:45:00 PM, [address] [place] [address], [phone], Progress Notes * Milind NOVA:1960 (65 yo M)Acc No.[id number]:09/22/2025 Progress Notes Patient: Ady SILVER Provider: ANATOLY Martel :1960 A ge:65 Y S ex:Male Date:09/22/2025 Address:[address] [place] [address] Pcp:GUADALUPE PARK MD Subjective: * Chief Complaints: * 1 . Disc pain. * HPI: C omplaints: On a scale of 1-10 how would you rate your pain today? Patient reports pain rated at a level6/10 Where is your pain today and how long has the pain been present? Patient reports pain located in the lower back with radiation down into his bilateral calves and feet; pt notes worsening numbness and tingling in his feet; pt denies fever, chills, body aches, fatigue or any flu-like symptoms; pt denies bowel/bladder dysfunction and denies saddle anesthesia How would you describe your pain, is it aching, stabbing, dull, sharp or burning? Patient reports achy Is there anything that you do that makes the pain better? Patient reports the pain decreases with laying down Is there anything that you do that makes the pain worse? Patient reports the pain increases with moving around What daily activities does your pain make more difficult? 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 Patient reports obtaining 8 hours of sleep per night. Is the pain causing you to wake up at night, if so how often? Patient reports no sleep disturbances What medications are you currently taking to manage the pain and how long have you been taking these medications? Patient reports taking aleve Have you had any injections recently and if you have, how much relief have you gotten from those? Patient reports 0 % L eft Lumbar Four Lumbar Five Epidural Steroid Injection on 09/16/25 Have you had any recent falls? Patient reports no The pain disability index score at today's visit is: _55___ pt denies additional complaints at this time. * Medical History: * Medications: T aking Plavix 75 MG [...] BY MOUTH NEEDED FOR ERECTILE DYSFUNCTION Oral Objective: * Vitals: * Examination: G eneral Examination: P hysical exam is unchanged from 08/25/25 except as denoted below. GENERAL APPEARANCE: well developed, well nourished, alert, and cooperative; in no apparent distress HEAD: normocephalic, atraumatic EYES: sclera non-icteric, extra ocular eye movements intact CHEST: respiratory rate normal, no signs of respiratory distress SKIN: no suspicious lesions, no rashes, no edema NEURO: Normal speech; walking unassisted without a cane or a walker Back: -No erythema, bruising, swelling, rashes, open wounds or other acute skin changes -Mild left SI tenderness -No disc space tenderness -No facet tenderness -No TB tenderness BLE: -Can stand on heels and toes -5/5 strength in all myotomes -Decreased sensation in a stocking distribution from feet to distal shins -2+ DTRs -No clonus -Negative SLR. Assessment: * Assessment: 1. L umbar radiculopathy - M54.16 (Primary) 2 . S akosua stenosis, lumbar region with neurogenic claudication - M48.062 Assessment is unchanged from 08/25/25 except as denoted below. Plan: * Treatment: * * Electronic signature of ANATOLY Patrick on 10/01/2025 at 11:35 AM EST Sign off status: Pending * Provider: ANATOLY Martel Date: 11/22/2024 Generated for Terese hillman/Chintan/Samantha on: 12/01/2024 11:35 AM EST History and Physical Notes * Examination Category Sub-Category Detail Notes Category Not es General Examination Physical exam is unchanged from 08/25/25 except as denoted below. GENERAL APPEARANCE: well developed, well nourished, alert, and cooperative; in no apparent distress HEAD: normocephalic, atraumatic EYES: sclera non-icteric, extra ocular eye movements intact CHEST: respiratory rate normal, no signs of respiratory distress SKIN: no suspicious lesions, no rashes, no edema NEURO: Normal speech; walking unassisted without a cane or a walker Back: -No erythema, bruising, swelling, rashes, open wounds or other acute skin changes -Mild left SI tenderness -No disc space tenderness -No facet tenderness -No TB tenderness BLE: -Can stand on heels and toes -5/5 strength in all myotomes -Decreased sensation in a stocking distribution from feet to distal shins -2+ DTRs -No clonus -Negative SLR
--- NOTE | ~2025-10-01 | MR_ITS ---
EXAMINATION: MR lumbar spine wo con DATE: 10/01/2025 12:51 INDICATION: Lumbar radiculopathy. TECHNIQUE: Magnetic resonance imaging (MRI) of the lumbar spine was performed without intravenous contrast. COMPARISON: None FINDINGS: There is 6 degrees dextrocurvature of lower lumbar spine. There are Schmorl's nodes at multiple levels. There is mildly decreased disc height at L1- L2, L2-L3, and L3-L4, severely decreased disc height at L4-L5, and mildly decreased disc height at L5-S1. The distal spinal cord signal intensity is normal. The conus medullaris is at L1. There is a 3.3 cm cyst in right kidney. The following disc levels are specifically discussed: L1-L2: The disc is bulging and has an annular fissure. There is mild bilateral facet joint osteoarthritis. There is mild bilateral neural foraminal stenosis. There is mild central canal stenosis. L2-L3: The disc is bulging and has an annular fissure. There is moderate bilateral facet joint osteoarthritis. There is moderate right and mild left neural foraminal stenosis. There is mild central canal stenosis. L3-L4: The disc is bulging and has an annular fissure. There is moderate bilateral facet joint osteoarthritis. There is mild bilateral neural foraminal stenosis. There is mild central canal stenosis. L4-L5: The disc is bulging and has an annular fissure. There is severe bilateral facet joint osteoarthritis. There is moderate bilateral neural foraminal stenosis. There is moderate central canal stenosis. L5-S1: The disc is bulging and has an annular fissure. There is severe bilateral facet joint osteoarthritis. There is mild right and moderate left neural foraminal stenosis. There is mild central canal stenosis. IMPRESSION: 1. Severe lumbar spondylosis. Reviewed, dictated and finalized at location E. E GRADER
--- OUTSIDE RECORDS SUMMARY | 2025-10-01 10:35 | XMS_ITS | Clinical Summary ---
Author Organization [facility] al Address [address] [place] [address] Care Team Providers Care Director Of Transportation Name Role Phone Omer Larson MD Primary Care Provider [phone] Allergies No known active allergies Medications vitamin [...] mg total) by mouth nightly 90 tablet 2 Active blood-glucose meter misc Use daily or as directed for monitoring of diabetes. One touch dx ell.9 1 each 2 Active lancets (OneTouch Delica Plus Lancet) 30 gauge misc USE TO TEST 3 TIMES A WEEK 100 each 1 4 Active ALPRAZolam (XANAX) 0.5 mg tablet TAKE 1 TABLET(0.5 MG TOTAL) BY MOUTH DAILY 90 tablet 5 Active sildenafiL (VIAGRA) 100 mg tablet TAKE 1 TABLET BY MOUTH NEEDED FOR ERECTILE DYSFUNCTION 24 tablet 3 5 Active clopidogreL (PLAVIX) 75 mg tablet Take 1 tablet (75 mg total) by mouth daily 30 tablet 11 5 Active rosuvastatin (CRESTOR) 20 mg tablet Take 1 tablet (20 mg total) by mouth daily 30 tablet 11 5 12/23/19 26 Active blood glucose diagnostic (Perception SoftwareTouch Verio test strips) strip Use to test 3 times daily 100 strip 5 5 Active tirzepatide (Mounjaro) 2.5 mg/0.5 mL pen injector injection Inject 0.5 mL (2.5 mg total) under the skin every 7 days 2 mL 2 5 Active chlorthalidone (HYGROTON) 25 mg tablet TAKE 1 TABLET (25 MG TOTAL) BY MOUTH DAILY. 90 tablet 3 5 Active buPROPion XL (WELLBUTRIN XL) 300 mg 24 hr tablet TAKE 1 TABLET BY MOUTH EVERY MORNING 90 tablet 1 5 Active olmesartan (BENICAR) 40 mg tablet TAKE 1 TABLET BY MOUTH DAILY 90 tablet 1 5 Active Active Problems Problem Noted Date Diagnosed Date [...] (10/11/2020): Added automatically from request for surgery [id number] Immunizations Immunization Administration Dates Next Due Influenza, Trivalent, High [...] stenosis (uterine cervix) Type 2 diabetes mellitus Gastric reflux Chronic kidney disease Lumbar stenosis Rheumatoid arthritis (HCC) Family History Medical History Relation Name Comments Anesthesia problems Brother 1 Ermias Da Silva PONV Colon polyps Brother 1 Ermias Avinash Diabetes Brother 1 Ermias Avinash Arthritis Brother 2 Ermias Hearing loss Father Ady Heart disease Father Ady Hyperlipidemia Father Ady Hypertension Father Ady Colon polyps Mother Jes Diabetes Mother Jes Ulcerative colitis Mother Jes Cancer Mother's Sister Alesha Relation Name Status Comments Brother 1 Ermias Avinash Brother 2 Ermias Father Ady Mother Jes [...] more drinks on one occasion? Never 04/15/2024 Personal Safety Answer Date Recorded Have you ever been in or are you currently in a harmful physical or emotional relationship or is someone making you feel afraid or unsafe? 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 Gender Identity Not on file Sexual Orientation Not on file Last Filed Vital Signs Vital Sign Reading Time Taken Comments Blood Pressure 120/82 12/30/2024 1:18 PM INSIDE SALES TERRITORY MANAGER Pulse 87 12/30/2024 1:18 PM INSIDE SALES TERRITORY MANAGER Temperature 36.5 C (97.7 F) 12/20/2024 10:53 AM INSIDE SALES TERRITORY MANAGER Respiratory Rate 16 12/23/2024 1:33 PM INSIDE SALES TERRITORY MANAGER Oxygen Saturation 98% 12/30/2024 1:18 PM INSIDE SALES TERRITORY MANAGER Inhaled Oxygen Concentration - - Weight 93 kg (205 lb) 12/30/2024 1:18 PM INSIDE SALES TERRITORY MANAGER Height 167.6 cm (5' 6) 12/30/2024 1:18 PM INSIDE SALES TERRITORY MANAGER Body Mass Index 33.09 12/30/2024 1:18 PM INSIDE SALES TERRITORY MANAGER Plan of Treatment Health Maintenance Due Date Last Done Comments Depression Screening 1960 Hepatitis C Screening 1960 Dilated Eye Exam 1958 Foot Exam 1958 DTaP/Tdap/Td Vaccine (1 - Tdap) 1969 Hepatitis B Screening 1976 Pneumococcal vaccine 65+ (1 of 2 - PCV) 1977 Zoster Vaccine (1 of 2) 2008 Fall Risk Assessment 10/11/2021 10/11/2020 Albumin Creatinine Ratio, Urine 06/02/2022 Well Visit 65+ 2023 08/12/2022 Prostate Cancer Screening-PSA 08/12/2024 08/12/2022, 05/01/2021 Hemoglobin A1C 06/24/2025 12/25/2024, 08/2 12/2023, 02/23/2024, Additional history exists Influenza Vaccine (#1) 2025 09/21/2014 eGFR 12/20/2025 12/20/2024, 07/3 , 05/01/2021 Lipid Panel 12/25/2025 12/25/2024, 08/03, 08/12/2022, Additional history exists Colon Cancer Screening-Colonoscopy 12/26/2026 12/26/2016 Colon Cancer Screening-CT Colonography Discontinued 12/26/2016 Colon Cancer Screening-DNA Stool Discontinued 12/26/19 Colon Cancer Screening-FIT Discontinued 12/26/2016 Colon Cancer Screening-Sigmoidoscopy Discontinued 12/26/2016 Procedures Procedure Name Priority Date/Time Associated Diagnosis Comments LIPID PANEL Routine 12/25/2024 11:33 AM INSIDE SALES TERRITORY MANAGER Right facial numbness HEMOGLOBIN A1C Routine 12/25/2024 11:32 AM INSIDE SALES TERRITORY MANAGER Right facial numbness EGFR STAT 12/20/2024 11:13 AM INSIDE SALES TERRITORY MANAGER PSA SCREEN Routine 08/12/2022 1:49 PM CDT Impaired fasting glucose Essential hypertension Hyperlipidemia, unspecified hyperlipidemia type Routine general medical examination at a [facility] care facility ALBUMIN CREATININE RATIO, URINE Routine 06/02/2021 10:22 AM CDT COLONOSCOPY Routine 12/26/2016 from Last 3 Months or Most Recently Relevant to Health Maintenance Results * (ABNORMAL) Lipid panel (12/25/2024 11:33 AM INSIDE SALES TERRITORY MANAGER) Cholesterol 150 <200 mg/dL [facility] HDL 39(L) > OR = 40 mg/dL [facility] Triglycerides 150(H) <150 mg/dL [facility] LDL 86 mg/dL (calc) [facility] Comment: Reference range: <100 Desirable range <100 mg/dL for primary prevention; <70 mg/dL for patients with CHD or diabetic patients with > or = 2 CHD risk factors. LDL-C is now calculated using the Lars calculation, which is a validated novel method providing better accuracy than the Friedewald equation in the estimation of LDL-C. Travis STEWART et al. MARLI. 2013;310(19): 5263-8792 (http://education.[employer]/faq/RCB557) Chol/HDL ratio 3.8 <5.0 (calc) [facility] Non-HDL, (LDL+VLDL) 111 <130 mg/dL (calc) [facility] Comment: For patients with diabetes plus 1 major ASCVD risk factor, treating to a non-HDL-C goal of <100 mg/dL (LDL-C of <70 mg/dL) is considered a therapeutic option. Blood 12/25/2024 11:3 3 AM INSIDE SALES TERRITORY MANAGER 12/25/2024 11:34 AM INSIDE SALES TERRITORY MANAGER [facility] - 12/26/2024 6:37 AM INSIDE SALES TERRITORY MANAGER FASTING:YES FASTING: YES us Edgard Toure MD LAB BLOOD ORDERABLES Final Result [facility] [address] [place] [address] * (ABNORMAL) Hemoglobin A1c (12/25/2024 11:32 AM INSIDE SALES TERRITORY MANAGER) Hgb A1C 7.0(H) <5.7 % of total Hgb [facility] Comment: For someone without known diabetes, a hemoglobin A1c value of 6.5% or greater indicates that they may have diabetes and this should be confirmed with a follow-up test. For someone with known diabetes, a value <7% indicates that their diabetes is well controlled and a value greater than or equal to 7% indicates suboptimal control. A1c targets should be individualized based on duration of diabetes, age, comorbid conditions, and other considerations. Currently, no consensus exists regarding use of hemoglobin A1c for diagnosis of diabetes for children. Blood 12/25/2024 11:3 2 AM INSIDE SALES TERRITORY MANAGER 12/25/2024 11:33 AM INSIDE SALES TERRITORY MANAGER Edgard Toure MD LAB BLOOD ORDERABLES Final Result [facility] [address] [place] [address] * (ABNORMAL) eGFR (12/20/2024 11:13 AM INSIDE SALES TERRITORY MANAGER) eGFR 47(L) >=60 mL/min/1. 73 m2 Comment: Interpretive Data Reference Interval Normal >/= 90 mL/min/1.73m2 Mildly decreased* 60 - 89 mL/min/1.73m2 Mildly to moderately decreased 45 - 59 mL/min/1.73m2 Moderately to severely decreased 30 - 44 mL/min/1.73m2 Severely decreased 15 - 29 mL/min/1.73m2 Kidney Failure < 15 mL/min/1.73m2 *Relative to young adult level Estimated glomerular filtration rate is determined by the 2020 CKD-EPI equation recommended by the National Kidney Foundation (A Unifying Approach to GFR Estimation: Recommendations of the NKF-ASK Task Force on Reassessing the Inclusion of Race in Diagnosing Kidney Disease, JASN 2020). The CKD-EPI equation should not be used for patients with unstable renal function and has not been validated in children and those over 70. Current interpretive data was last reviewed 2021. Blood 12/20/2024 11:1 3 AM INSIDE SALES TERRITORY MANAGER 12/20/2024 11:19 AM INSIDE SALES TERRITORY MANAGER us Ambrosio Stuart MD LAB BLOOD ORDERABLES Fi nal Result [facility] [address] Department of Laboratories [place], [place] [id number] * PSA screen (08/12/2022 1:49 PM CDT) PSA 0.9 0.0 - 4.0 ng/mL [facility] - 01 Comment: Lori ECLIA methodology. According to the [employer], Serum PSA should decrease and [...] - 08/13/2022 8:15 AM CDT Performed at: [address] [place] [address] [id number] Drone Pilot: Harish Flannery PhD, Phone: [phone] us Omer Larson MD LAB BLOOD ORDERABLES Final Re sult Performing Organization Address [facility] Co de Phone Number [facility] - 01 * Albumin Creatinine Ratio, Urine (06/02/2021 10:22 AM CDT) Pathologist [facility] Creatinine, ur 65 20 - 320 mg/dL [...] 06/03/2021 1:20 PM CDT SPLIT 06/01/2021 FROM [id number] Rocky Domínguez DO LAB URINE ORDERABLES Final Result Performing Organization Address City/[facility]/ZIP Co de Phone Number [facility] [address] [place] [address] * Colonoscopy (12/26/2016) Anatomical Region Laterality Modality Other Narrative 12/26/2016 Pt reports he had in 2017 it was normal repeat in 10 years us Historical Provider ENDOSCOPY PROCEDURES Katherine l Result from Last 3 Months or Most Recently Relevant to Health Maintenance Insurance [employer] [place] [employer] [place] Care Teams Director Of Transportation Relationship Specialty Start Date End Date Omer Larson MD [facility] - General 12/25/16
--- OUTSIDE RECORDS SUMMARY | 2025-10-01 10:35 | XMS_ITS | Clinical Summary ---
Author Organization [facility] Address [address] [place] [address] Care Team Providers Care Nuclear Medicine Specialist Name Role Phone Juliano Wylie MD Unavailable [phone] [facility],non-owned Affiliates and Associated Physician Practices is amultiple site organization consisting of ambulatory clinics and hospital sitesin [place], [place], [place] and [place]. This disclosure is being madepursuant to the Care Everywhere program and may not contain all information available regarding this patient. Last updated 18.[facility] [place] Allergies No known active allergies Medications * Be aware that medications may not be up to date on this document. Always verify current medications with the patient. nebivolol (BYSTOLIC) 10 MG tablet Take by mouth once daily. Active olmesartan-hydro chlorothiazide (BENICAR HCT) 40-12.5 MG tablet Take by [...] at Not on file Legal Sex Male 5:02 AM BUCKLE STRINGER Gender Identity Not on file Sexual Orientation Not on file Last Filed Vital Signs Vital Sign Reading Time Taken Comments Blood Pressure 132/82 12/29/2013 10:25 AM BUCKLE STRINGER Pulse 74 12/29/2013 10:25 AM BUCKLE STRINGER Temperature - - Respiratory Rate - - Oxygen Saturation - - Inhaled Oxygen Concentration - - Weight 104.1 kg (229 lb 9.6 oz) 014 10:25 AM BUCKLE STRINGER Height 177 cm (5' 9.69) 12/29/2013 10: 25 AM BUCKLE STRINGER Body Mass Index 33.24 12/29/2013 10:25 AM BUCKLE STRINGER Plan of Treatment Health Maintenance Due Date [...] 2008 ZOSTER VACCINE (1 of 2) 2008 DEPRESSION SCREENING 11/03/2024 COVID-19 VACCINE (1 - 2024-2 6 season) 2025 INFLUENZA VACCINE (#1) 2025 Respiratory Syncytial Virus (RSV) Vaccine Pt: or [...] to complete this topic MENINGOCOCCAL (Group B) VACC INE SHARED DECISION-MAKING Aged Out No longer eligibl e based on patient's age to complete this topic MENINGOCOCCAL GROUPS A/C/Y/W VACCINE Aged Out No longer eligible b ased on patient's age to complete this topic Care Teams Nuclear Medicine Specialist Relationship Specialty Start Date End Date Juliano Wylie MD Neurology 12/29/13
--- OUTSIDE RECORDS SUMMARY | 2025-10-01 10:36 | XMS_ITS | Clinical Summary ---
Author Organization [facility] Facility Address [address] [address] Care Team Providers Care Farm Reporter Name Role Phone Omer Larson MD Primary Care Provider [phone] Medications chlorthalidone 25 MG tablet Take 1 tablet (25 mg total) by mouth 3 times weekly: Fri and Friday morning 45 tablet 1 11/12/2023 Active cholecalciferol (VITAMIN D-3) 125 MCG (5000 UT) capsule Take 1 capsule (5,000 Units total) by mouth 1 (one) time each day 90 capsule 1 02/15/2025 Active rosuvastatin (CRESTOR) 5 MG tablet Take 1 tablet (5 mg total) by mouth 1 (one) time each day in the morning 90 tablet 1 02/15/2025 Active Social History Tobacco Use Types Packs/Day [...] Sign Reading Time Taken Comments Blood Pressure 140/90 02/15/2025 2:50 PM CDT Pulse 68 02/15/2025 2:50 PM CDT Temperature 36.7 C (98 F) 02/15/2025 2:50 PM CDT Respiratory Rate 18 02/15/2025 2:50 PM CDT Oxygen Saturation 97% 02/15/2025 2:50 PM CDT Inhaled Oxygen Concentration - - Weight 92.8 kg (204 lb 8 oz) 02/15/2025 2:50 PM CDT Height 170.2 cm (5' 7) 07/30/2022 3:29 PM CDT Body Mass Index 32.03 07/30/2022 3:29 PM CDT Plan of Treatment Upcoming Encounters Date Type Department Care Team (Late st Contact Info) Description 11/22/2025 3:15 PM COMBAT SYSTEMS ENGINEER Office Visit [facility], [facility] [address] [place] [address] Rocky Domínguez DO [address] [facility] [address] [place] [address] Health Maintenance Due Date Last Done Comments Pneumococcal Vaccine: 50+ Years (1 of 2 - PCV) 1977 Colorectal Cancer Screening: Annual FOBT 2007 Colorectal Cancer Screening: Sigmoidoscopy 2007 Diabetes: Ophthalmology Exam 06/05/2021 Diabetes: Pedal Pulse Checked 06/05/2021 Diabetes: Sensory Foot Exam 06/05/2021 Diabetes: Visual Foot Exam 06/05/2021 Diabetes: Hemoglobin A1C 03/24/2025 025, 02/23/2024, 08/19/2023, Additional history exists Influenza Vaccine (#1) 2025 09/21/2014 Colorectal Cancer Screening: Colonoscopy 12/26/2026 12/26/2016 Hepatitis B Vaccine Aged Out No longe r eligible based on patient's age to complete this topic Insurance [facility] Care Teams Farm Reporter Relationship Specialty Start Date End Date Omer Larson MD [address] [facility] [address] [place] [address] PCP - General Internal Medicine 08/05/23
--- OUTSIDE RECORDS SUMMARY | 2025-10-01 10:36 | XMS_ITS | Encounter Summary ---
Author Organization [facility] Address [address] [place] [address] Care Team Providers Care Career Coordinator Name Role Phone Omer Larson MD Primary Care Provider [phone] Reason for Referral * Diagnostic Imaging (Routine) - Closed Specialty Diagnoses / Procedures Referred By Contac t Referred To Contact Diagnoses Cervical radiculopathy Procedures XR Spine Cervical 2 or 3 Views Cam Funez MD Phone: tel: fax: [facility] [address] [place] [address] Referral ID Status Reason Start Date Expiration Date Visits Re quested Visits Authorized [id number] Closed 07/31/2018 02/09/2020 1 1 Encounter Details Date Type Department Care Team (Latest Contact Info) Description 07/31/2018 Community Orders [facility] EpicCare Link Cam Funez MD [address] [facility] [address] [place], [place] [id number] Cervical radiculopathy (Primary Dx) Social History Tobacco Use Types Packs/Day Years Used Date Smoking Tobacco: Never Assessed Sex and Gender Information Value Date Recorded Sex Assigned at Not on file 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
--- OUTSIDE RECORDS SUMMARY | 2025-10-01 10:36 | XMS_ITS | Patient Health Record ---
Author Organization [facility] Address [address] [place] [address] Care Team Providers Care Marine Welder Name Role Phone XAVIER WEBB, GUADALUPE Primary Care Provider Unavailab scout RodriguezJennifer Unavailable [phone] Benoit De La Torre Unavailable [phone] Allergies No Known Allergies Reason For Referral No Information Medications Medication SIG (Take, Route, Frequency, Duration) Notes Start Date End Date Status Sildenafil Citrate 100 MG TAKE 1 TABLET BY MOUTH NEEDED FOR ERECTILE DYSFUNCTION Oral for 90 Active Olmesartan Medoxomil 40 MG TAKE 1 TABLET BY MOUTH DAILY. GENERIC EQUIVALENT FOR BENICAR Oral for 90 Active Medrol 4 MG as directed Orally 6 [...] other day for 30 days 07/06/2024 Active buPROPion HCl ER (XL) 300 MG TAKE 1 TABL ET BY MOUTH EVERY MORNING Oral for 90 Active THC GUMMIES 10MG ONE PO QHS Ac tive Plavix 75 MG 1 tablet Orally Once a day Active Social History Tobacco Use: Social History Observation Description Date Details (start date - stop date) Never Smoker NA - NA Alcohol Screening Question Answer Notes Alcoholic drink in the past year Yes Frequency Four or more times a week (4 poi nts) Points 4 Interpretation Positive Screening Question Answer Notes Are you a current smoker? 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) Active confirmed Problem Information temporarily unavailable Lumbar spondylosis (M47.816) Active confirmed Problem Information temporarily unavailable Sacroiliitis, not elsewhere classified (M46.1) Active confirmed Problem Information temporarily unavailable Lumbar radiculopathy (M54.16) Active confirmed Problem Information temporarily unavailable Primary osteoarthritis, left shoulder (M19.012) Active confirmed Problem Information temporarily unavailable Localized osteoarthritis of left shoulder (M19.012) Active confirmed Problem Information temporarily unavailable Cervical spondylosis without myelopathy (M47.812) Active confirmed Problem Information temporarily unavailable Spinal stenosis, lumbar region with neurogenic claudication (M48.062) Active confirmed Problem Information temporarily unavailable Lumbar Spondylosis without Myelopathy (M47.816) Active confirmed Encounters Encounter Location Date Provider Diagnosis [facility] [address] 09/16/2025 Jennifer Rodriguez Lumbar radiculopathy M54.16 [facility] [address] 09/22/2025 Benoit De La Torre Lumbar radiculopathy M54.16 and Spinal stenosis, lumbar region with neurogenic claudication M48.062 [facility] [address] 10/12/2024 Jennifer Rodriguez Lumbar radiculopathy M54.16 and Spinal stenosis, lumbar region with neurogenic claudication M48.062 [facility]- [address] [address] 11/16/2024 Jennifer Rodriguez Lumbar radiculopathy M54.16 [facility]- [address] [address] 12/07/2024 Benoit De La Torre Lumbar Spondylosis without Myelopathy M47.816 and Other intervertebral disc degeneration, lumbar region with discogenic back pain only M51.360 [facility]- [facility] [address] [place] [id number] 01/04/2025 Benoit De La Torre Lumbar radiculopathy M54.16 and Lumbar Spondylosis without Myelopathy M47.816 [facility] [place] [address] 02/01/2025 Jennifer Christopher Lumbar radiculopathy M54.16 and Spinal stenosis, lumbar region with neurogenic claudication M48.062 [facility] [place] [address] 02/08/2025 Benoit De La Torre Lumbar radiculopathy M54.16 ; Spinal stenosis, lumbar region with neurogenic claudication M48.062 and Other spondylosis with radiculopathy, lumbar region M47.26 [facility]-[address] [address] 04/05/2025 Jennifer Cheikhopher Lumbar Spondylosis without Myelopathy M47.816 [facility] [place] [address] 04/19/2025 Benoit De La Torre Lumbar radiculopathy M54.16 and Spinal stenosis, lumbar region with neurogenic claudication M48.062 [facility] [place] [address] 08/25/2025 Benoit De La Torre Lumbar radiculopathy M54.16 and Spinal stenosis, lumbar region with neurogenic claudication M48.062 Assessments Encounter Date Diagnosis (ICD Code) Assessment Notes Treatment Notes Treatment Clinical Notes Section Notes 09/16/2025 Lumbar radiculopathy (ICD-10 - M54.16) 09/22/2025 Lumbar radiculopathy (ICD-10 - M54.16) Assessment is unchanged from 08/25/25 except as denoted below. 09/22/2025 Spinal stenosis, lumbar region with neurogenic claudication (ICD-10 - M48.062) Assessment is unchanged from 08/25/25 except as denoted below. 10/12/2024 Lumbar radiculopathy (ICD-10 - M54.16) Assessment is unchanged from 08/26/2024 except as denoted below. 10/12/2024 Spinal stenosis, lumbar region with neurogenic claudication (ICD-10 - M48.062) Assessment is unchanged from 08/26/2024 except as denoted below. 11/16/2024 Lumbar radiculopathy (ICD-10 - M54.16) 12/07/2024 Lumbar Spondylosis without Myelopathy (ICD-10 - M47.816) Assessment is unchanged from 10/12/24 except as denoted below. 12/07/2024 Other intervertebral disc degeneration, lumbar region with discogenic back pain only (ICD-10 - M51.360) Assessment is unchanged from 10/12/24 except as denoted below. 01/04/2025 Lumbar radiculopathy (ICD-10 - M54.16) Assessment is unchanged from 12/07/24 except as denoted below. 01/04/2025 Lumbar Spondylosis without Myelopathy (ICD-10 - M47.816) Assessment is unchanged from 12/07/24 except as denoted below. 02/01/2025 Lumbar radiculopathy (ICD-10 - M54.16) 02/01/2025 Spinal stenosis, lumbar region with neurogenic claudication (ICD-10 - M48.062) 02/08/2025 Lumbar radiculopathy (ICD-10 - M54.16) Assessment is unchanged from 01/04/25 except as denoted below. 02/08/2025 Spinal stenosis, lumbar region with neurogenic claudication (ICD-10 - M48.062) Assessment is unchanged from 01/04/25 except as denoted below. 04/05/2025 Lumbar Spondylosis without Myelopathy (ICD-10 - M47.816) 04/19/2025 Lumbar radiculopathy (ICD-10 - M54.16) Assessment is unchanged from 02/08/25 except as denoted below. 04/19/2025 Spinal stenosis, lumbar region with neurogenic claudication (ICD-10 - M48.062) Assessment is unchanged from 02/08/25 except as denoted below. 08/25/2025 Lumbar radiculopathy (ICD-10 - M54.16) Assessment is unchanged from 04/19/25 except as denoted below. 08/25/2025 Spinal stenosis, lumbar region with neurogenic claudication (ICD-10 - M48.062) Assessment is unchanged from 04/19/25 except as denoted below. 02/08/2025 Other spondylosis with radiculopathy, lumbar region (ICD-10 - M47.26) Assessment is unchanged from 01/04/25 except as denoted below. 09/22/2025 Other Notes: [...] federally illicit substance, and it is against [facility] policy to prescribe opioids [...] unchanged from 08/25/25 except as denoted below. 10/12/2024 Other Notes: Significant time was spent due to complex decision-making as a result of the patient's complicated pain issues. The plan is as follows: Patient will continue exercise therapy regimen. We discussed with the patient about the Minimally Invasive Lumbar Decompression procedure (MILD) as a good long-term option to target their chronic pain and radicular symptoms. The patient has tried and failed more conservative measures including: medications, physical therapy, lifestyle changes, and epidural steroid injections. The patient does have ligamentum flavum hypertrophy at the L4-5 level noted on their MRI report causing spinal stenosis. We reviewed the procedure details, risks (including but not limited to: infection, bleeding, damaging surrounding tissues, anesthesia, etc.), benefits, alternatives, and expected outcomes with the patient. The patient expresses understanding, and all questions were answered to patient's satisfaction. Educational literature was given to review. We will schedule the patient for the MILD procedure to be completed at the L4-5 level to target the patient's chronic pain and radicular symptoms stemming from spinal stenosis. We will schedule the pt for a bilateral L4-5 JA in order to target the pt's lumbar spinals stenosis causing the pt radicular pain in his bilateral LEs. We are not prescribing the pt any medications at this visit and advised the pt to continue taking his other medications as previously directed. Assessment is unchanged from 08/26/2024 except as denoted below. 12/07/2024 Other Notes: Significant time was spent due to complex decision-making as a result of the patient's complicated pain issues. The plan is as follows: Patient will continue exercise therapy regimen. Pti s requesting a steroid rx to have on hand if his pain and symptoms flare up. Will prescribe a prednisone burst and taper for patient's acute pain and inflammation. Discussed medication risks/potential side effects/potentia l drug interactions with the patient. Advised the patient to not take any NSAIDs while taking prednisone. Advised pt to take the medication as prescribed until completion once he starts it. The patient expresses understanding. The patient denies history of kidney or liver disease. The patient has taken this medication in the past without issues. Discussed with pt again about the MILD procedure at L4/5. MASC is OON for the pt, and he cannot afford the procedure at this time. Will schedule the patient for a right then left L4/5 and L5/S1 diagnostic facet joint injection to target their axial LBP stemming from lumbar spondylosis. We will plan for a lumbar MB nerve RFA in the future. Discussed procedure details, risks, benefits, alternatives and expected outcomes with the patient. The patient expresses understanding and all patient questions were answered to their satisfaction. We will not add or change any other medications at this time as the patient [...] regarding this encounter. Assessment is unchanged from 10/12/24 except as denoted below. 01/04/2025 Other Notes: Significant time was spent due to complex decision-making as a result of the patient's complicated pain issues. The plan is as follows: Patient will continue exercise therapy regimen. Agree with pt following up with cardiology. Pt's insurance denied the diagnostic facet joint injections. Discussed with pt about lumbar MBBs and RFAs, but the pt defers this procedure at this time. Will schedule pt for a repeat left L4/5 JA to target his pain and radicular symptoms stemming from stenosis at this leve. The pt has had significant improvement from this injection in the past. Discussed procedure details, risks, benefits, alternatives and expected outcomes of the above procedures with the patient. The patient expressed understanding. All patient questions were answered to the patient's satisfaction. We will not add or change any medications at this time as the patient is currently tolerating all medications with no significant side effects. Advised patient to contact the clinic if they develop any new symptoms or worsening pain The total encounter time for today's visit was 30 minutes which was spent on preparation for the visit, e.g. chart review, and in the activities documented in this note. Please refer back to the HPI and physical exam sections of this note for further details regarding this encounter. Assessment is unchanged from 12/07/24 except as denoted below. 02/08/2025 Other Notes: Significant time was spent due to complex decision-making as a result of the patient's complicated pain issues. The plan is as follows: Patient will continue exercise therapy regimen. Explained to the patient that they have multiple pain generators and, as such, it will likely take multiple treatments/inter ventions to adequately target all of their different areas of pain. The patient expresses understanding. We discussed with the patient about the Minimally Invasive Lumbar Decompression procedure (MILD) as a good long-term option to target their chronic pain and radicular symptoms. The patient has tried and failed more conservative measures including: medications, physical therapy, lifestyle changes, and epidural steroid injections. The patient does have ligamentum flavum hypertrophy at the L4/5 level noted on their MRI report causing spinal stenosis. We reviewed the procedure details, risks (including but not limited to: infection, bleeding, damaging surrounding tissues, anesthesia, etc.), benefits, alternatives, and expected outcomes with the patient. The patient expresses understanding, and all questions were answered to patient's satisfaction. Educational literature was given to review. We will schedule the patient for the MILD procedure to be completed at the L4/5 to target the patient's chronic pain and radicular symptoms stemming from spinal stenosis. Will schedule the patient for a right diagnostic L4/5 and L5/S1 diagnostic facet joint injection to target their axial LBP stemming from lumbar spondylosis. We will plan for a lumbar MB nerve RFA in the future. Discussed procedure details, risks, benefits, alternatives and expected outcomes with the patient. The patient expresses understanding and all patient questions were answered to their satisfaction. We will not add or change any [...] regarding this encounter. Assessment is unchanged from 01/04/25 except as denoted below. 04/19/2025 Other Notes: Significant time was spent due to complex decision-making as a result of the patient's complicated pain issues. The plan is as follows: Patient will continue exercise therapy regimen. Will schedule the patient for a left L4/5 JA to target pain and radicular symptoms stemming from stenosis. Discussed procedure details, risks, benefits, alternatives and expected outcomes with the patient. The patient expresses understanding. All patient questions were answered to the patient's satisfaction. We will not add or change any [...] regarding this encounter. Assessment is unchanged from 02/08/25 except as denoted below. 08/25/2025 Other Notes: Significant time was spent due to complex decision-making as a result of the patient's complicated pain issues. The plan is as follows: Patient will continue exercise therapy regimen. Will prescribe a prednisone burst and taper for patient's acute pain and inflammation. Discussed medication risks/potential side effects with the patient. Advised the patient to not take any NSAIDs while taking prednisone. The patient expresses understanding. The pt has tolerated this medication well in the past. The patient denies history of kidney or liver disease. Will schedule the patient for a left L4/5 JA to target pain and radicular symptoms stemming from stenosis. Discussed procedure details, risks, benefits, alternatives and expected outcomes with the patient. The patient expresses understanding. All patient questions were answered to the patient's satisfaction. Pt elects to call to schedule this injection. We will not add or change any [...] regarding this encounter. Assessment is unchanged from 04/19/25 except as denoted below. Plan Of Treatment Pending Test Test Name Order Date MRI Cervical Spine without Contrast 05/2023 MRI Lumbar Spine without contrast 2024 Xray Pelvis Complete 3 Views 05/18/2024 Xray Shoulder Complete Left 09/09/2023 Xray Shoulder Complete Right 09/09/2023 Sacroiliac Joints 3 Views 06/16/2024 Results 09/11/2023 PDF Report 09/11/2023 Next Appt Details Provider Name:Benoit De La Torre, 1 12/12/2024 12:45:00 PM, [address] [place], [address], Insurance Providers Payer Name Payer Address Payer Phone Subscriber Number Group Number Insured Name Patient Relationship to Insured Coverage Start Date Coverage End Date Ayush Pérez [facility] [address] [place] [address] [id number] Ady Da Silva Self - patient is the insured Medical (General) History Medical History History ICD Code Diabetes High Blood Pressure Kidney Problems Surgical History Surgery Date(Month/Year) RT Shoulder 2001 L Shoulder 2004 Right Knee 2005 Right Knee 2005 Right Hand 2011 Right Knee 2012 Hernia Repair 2018 Left Hand 2019
== END 2025-10-01 10:29 | disposition home or self-care (01) ==
LOC: ANHIMG 10:33
PROVIDERS: PCP Internal Medicine; Visit Provider Physical Medicine & Rehabilitation Pain Medicine
DX: M47.26 Other spondylosis with radiculopathy, lumbar region (principal)
CPT/HCPCS: 72148